=== PATIENT | female | born 1935 | race Caucasian/White ===

== ENCOUNTER 2018-08-12 17:30 | Inpatient (IN) | payer OTHER ==
[2018-08-12] MEDS ORDERED: KETOROLAC TROMETHAMINE 30 MG/1 ML VIAL IM ONE (17:51)
--- NOTE | 2018-08-12 17:55 | PDOC ---
History of Present Illness - General Chief Complaint: Pain Stated Complaint: POSSIBLE FRACTURE/FALL Time Seen by Provider: 08/12/18 17:44 History Source: Patient - History of Present Illness Occurred: reports: other Pain Location: reports: lower extremity Past History - Past Medical History Allergies/Adverse Reactions: Allergies Allergy/AdvReac Type Severity Reaction Status Date / Time levofloxacin Allergy Verified 08/12/18 17:38 piperacillin Allergy Verified 08/12/18 17:38 tazobactam Allergy Verified 08/12/18 17:38 tetracycline Allergy Verified 08/12/18 17:38 Home Medications: Ambulatory Orders Acetaminophen [Tylenol] 325 mg PO Q4H PRN 08/12/18 Atorvastatin Calcium [Lipitor] 20 mg PO DAILY 08/12/18 Cholecalciferol (Vitamin D3) [Vitamin D3 -] 1,000 unit PO DAILY 08/12/18 Cyanocobalamin [Vitamin B12 -] 1,000 mcg PO DAILY 08/12/18 Lactobacillus Acidophilus [Bacid -] 1 each PO BID 08/12/18 Memantine HCl [Namenda -] 20 mg PO DAILY 08/12/18 Nitrofurantoin Monohyd/M-Cryst [Macrobid -] 100 mg PO BID 08/12/18 Quetiapine Fumarate [Seroquel -] 25 mg PO HS 08/12/18 Sertraline HCl [Zoloft -] 50 mg PO DAILY 08/12/18 clonazePAM [Klonopin -] 0.5 mg PO DAILY 08/12/18 Anemia: Yes Cardiac Disorders: Yes (artherosclerotic heart disease.) COPD: No CHF: No Dementia: Yes (metabolic encephalopathy w/diff walking) Diabetes: Yes Hypercholesterolemia: Yes Psychiatric Problems: Yes (anxiety, major depressive disorder, psychotic ds w/ delusional episodes.) - Suicide/Smoking/Psychosocial Hx Smoking History: Unknown if ever smoked Have you smoked in the past 12 months: No Information on smoking cessation initiated: No Hx Alcohol Use: No Drug/Substance Use Hx: No Substance Use Type: None Review of Systems - Review of Systems Constitutional: No: Fever Respiratory: No: Shortness of Breath Cardiac (ROS): No: Chest Pain ABD/GI: No: Nausea, Vomiting, Abdominal cramping : No: Dysuria Musculoskeletal: Yes: Joint Pain *Physical Exam - Vital Signs Last Vital Signs Temp Pulse Resp BP Pulse Ox 98.7 F 72 18 147/74 95 08/12/18 17:38 08/12/18 17:38 08/12/18 17:38 08/12/18 17:38 08/12/18 17:38 - Physical Exam General Appearance: Yes: Appropriately Dressed. No: Apparent Distress HEENT: positive: Normal Voice Neck: positive: Supple. negative: Tender Respiratory/Chest: negative: Respiratory Distress Gastrointestinal/Abdominal: positive: Soft. negative: Tender Extremity: positive: Other (externally rotated LLE, c/o pain to L hip w/ ROM, NVI) Integumentary: positive: Dry, Warm Neurologic: positive: Alert, Normal Mood/Affect ED Treatment Course - LABORATORY CBC & Chemistry Diagram: 08/13/18 07:06 08/13/18 07:06 - RADIOLOGY Radiology Studies Ordered: Category Date Time Status CHEST X-RAY PORTABLE* [RAD] Stat Radiology 08/12/18 17:50 Ordered HIP & PELVIS-LEFT [RAD] Stat Radiology 08/12/18 17:50 Ordered HIP & PELVIS-RIGHT [RAD] Stat Radiology 08/12/18 17:50 Ordered Medical Decision Making - Medical Decision Making 08/12/18 17:52 82-year-old female, history of Alzheimer's dementia, CAD, UTI, ambulatory at baseline, sent to ED from [facility] after x-ray done at facility today showed a left hip fracture per EMS report. Patient was seen in ED 3 days ago for unwitnessed fall and had negative workup. CT head and bilateral hip x-rays were done and read as negative per radiology and patient was discharged back to [facility]. Apparently, patient continues to complain of left hip pain and had x-ray done today. Unclear if pt have been bearing weight since fall. No report of additional fall per [facility] report See exam L hip fx s/p fall in NH 3 days ago Hip films done in ED 08/10 read as neg per radiologist XR at [facility] today showed L hip fx per [facility] Pt c/o L hip pain and externally rotated on exam, NVI -xrays -labs -anticipate admission 08/12/18 19:05 Displaced femoral neck fracture on x-ray. Patient signed out to [facility] at this time pending ortho and admission *DC/Admit/Observation/Transfer Diagnosis at time of Disposition: Hip fracture Qualifiers: Encounter type: initial encounter Fracture type: closed Laterality: left Qualified Code(s): S72.002A - Fracture of unspecified part of neck of left femur , initial encounter for closed fracture - Discharge Dispostion Condition at time of disposition: Fair - Referrals - Patient Instructions - Post Discharge Activity
[2018-08-12] MEDS ORDERED: KETOROLAC TROMETHAMINE 30 MG/1 ML VIAL IVPUSH ONE (18:02)
[2018-08-12] MEDS ORDERED: KETOROLAC TROMETHAMINE 30 MG/1 ML VIAL ONE (18:03)
[2018-08-12 18:28] LABS: BASO % 0.1 % (0-2.0); EOS % 0.5 % (0-4.5); HEMATOCRIT 36.9 % (32.4-45.2); LYMPH % 3.5 % (8-40); MCHC 32.6 g/dl (32.0-36.0); MEAN PLT VOLUME 8.7 fl (7.5-11.1); MONO % 6.1 % (3.8-10.2); NEUT % 89.8 % (42.8-82.8); PLATELET COUNT 279 K/MM3 (134-434); RBC 4.15 M/mm3 (3.60-5.2); RDW 14.1 % (11.6-15.6); WHITE BLOOD COUNT 11.7 K/mm3 (4.0-10.0)
[2018-08-12 18:43] LABS: INR 1.09 (0.83-1.09); PROTHROMBIN TIME (PATIENT) 12.9 SEC (9.7-13.0)
[2018-08-12 18:46] LABS: ACTIVATED PTT 33.2 SECONDS (25.2-36.5)
[2018-08-12 18:54] LABS: ALBUMIN 3.4 g/dl (3.4-5.0); ALK PHOS 102 U/L (45-117); ANION GAP 7 MMOL/L (8-16); BILIRUBIN,TOTAL 0.7 mg/dL (0.2-1); BLOOD UREA NITROGEN 16 mg/dL (7-18); CALCIUM 9.1 mg/dL (8.5-10.1); CHLORIDE 109 mmol/L (98-107); CO2 28 mmol/L (21-32); CREATININE 0.5 mg/dL (0.55-1.3); GLUCOSE,RANDOM 130 mg/dL (74-106); POTASSIUM 4.1 mmol/L (3.5-5.1); SGOT/AST 16 U/L (15-37); SGPT/ALT 26 U/L (13-61); SODIUM 144 mmol/L (136-145); TOT PROT 6.9 g/dl (6.4-8.2)
[2018-08-12] MEDS ORDERED: ACETAMINOPHEN 1000 MG/100 ML VIAL (NON FORMULARY) IVPB ONE (19:44)
--- NOTE | 2018-08-12 19:50 | PDOC ---
*Physical Exam - Vital Signs Last Vital Signs Temp Pulse Resp BP Pulse Ox 98.7 F 72 18 147/74 95 08/12/18 17:38 08/12/18 17:38 08/12/18 17:38 08/12/18 17:38 08/12/18 17:38 ED Treatment Course - LABORATORY CBC & Chemistry Diagram: 08/12/18 18:10 08/12/18 18:10 - ADDITIONAL ORDERS Additional order review: Laboratory Results 08/12/18 08/12/18 18:10 18:10 WBC 11.7 H RBC 4.15 Hgb 12.0 Hct 36.9 MCV 89.0 MCH 29.0 MCHC 32.6 RDW 14.1 Plt Count 279 MPV 8.7 Absolute Neuts (auto) 10.5 H Neutrophils % 89.8 H Lymphocytes % 3.5 L D Monocytes % 6.1 Eosinophils % 0.5 Basophils % 0.1 Nucleated RBC % 0 Sodium 144 Potassium 4.1 Chloride 109 H Carbon Dioxide 28 Anion Gap 7 L BUN 16 Creatinine 0.5 L Creat Clearance w eGFR > 60 Random Glucose 130 H Calcium 9.1 Total Bilirubin 0.7 AST 16 ALT 26 Alkaline Phosphatase 102 Creatine Kinase 68 Troponin I < 0.02 Total Protein 6.9 Albumin 3.4 08/12/18 18:10 RBC 4.15 MCV 89.0 MCHC 32.6 RDW 14.1 MPV 8.7 Neutrophils % 89.8 H Lymphocytes % 3.5 L D Monocytes % 6.1 Eosinophils % 0.5 Basophils % 0.1 - Medications Given in the ED: ED Medications Discontinued Medications Generic Name Dose Route Start Last Admin Trade Name Maxx PRN Reason Stop Dose Admin Ketorolac Tromethamine 30 mg 08/12/18 17:51 08/12/18 18:23 Toradol Injection - IM 08/12/18 17:52 Not Given ONCE ONE Ketorolac Tromethamine 30 mg 08/12/18 18:02 08/12/18 18:23 Toradol Injection - IVPUSH 08/12/18 18:03 30 mg ONCE ONE Administration Medical Decision Making - Medical Decision Making 08/12/18 19:43 I spoke to Alyssia LANIER/ Dr. duenas. recommends surgical intervention once cleared by medical team 08/12/18 20:44 Patient signed out to Dr. Teran/ Dr. Hernandez. *DC/Admit/Observation/Transfer Diagnosis at time of Disposition: Hip fracture Qualifiers: Encounter type: initial encounter Fracture type: closed Laterality: left Qualified Code(s): S72.002A - Fracture of unspecified part of neck of left femur , initial encounter for closed fracture - Discharge Dispostion Condition at time of disposition: Fair - Referrals Referrals: Marlene Moran [Primary Care Provider] - - Patient Instructions - Post Discharge Activity
[2018-08-12] MEDS ORDERED: ACETAMINOPHEN INJECTION 100 ML IVPB ONE (19:58)
[2018-08-12] MEDS ORDERED: SODIUM CHLORIDE 1,000 ML IV SCH (20:00)
--- NOTE | 2018-08-12 20:45 | PN ---
Teaching Attending Note Name of Resident: Pete Rojas ATTENDING PHYSICIAN STATEMENT I saw and evaluated the patient. I reviewed the resident's note and discussed the case with the resident. I agree with the resident's findings and plan as documented. SUBJECTIVE: Patient is an 82 year old woman with history of Alzheimer's dementia, CAD, UTI, ambulatory at baseline, sent to ER from [facility] after x-ray done at facility today showed a left hip fracture per EMS report. Patient was seen in ER 3 days ago for unwitnessed fall and had negative workup. CT head and bilateral hip x-rays were done and read as negative per radiology and patient was discharged to [facility]. Apparently, patient continues to complain of left hip pain and had x-ray done today. Unclear if she had been bearing weight since fall. No report of additional fall per NH report OBJECTIVE: Alert Vital Signs Period Temp Pulse Resp BP Sys/Ramirez Pulse Ox Last 24 Hr 98.7 F 72 18 147/74 95 HEENT: No Jaundice, eye redness or discharge, PERRLA, EOMI. Normocephalic, atraumatic. External ears are normal and hearing is grossly intact. No nasal discharge. Neck: Supple, nontender. No palpable adenopathy or thyromegaly. No JVD Chest: Good effort. Clear to auscultation and percussion. Heart: Regular. No S3, rub or murmur Abdomen: Not distended, soft, nontender and no HSM. No rebound or guarding. Normoactive bowel sounds. Ext: Peripheral pulses intact. No leg edema. Tender left hip with limited ROM. Skin: Warm and dry. No petechiae, rash or ecchymosis. Neuro: Alert. Oriented x3. CN 2-12 grossly intact. Sensation grossly intact in all four extremities and DTR are symmetric. Current Medications Generic Name Dose Route Start Last Admin Trade Name Freq PRN Reason Stop Dose Admin Sodium Chloride 1,000 mls @ 50 mls/hr 08/12/18 20:00 Normal Saline - IV 08/13/18 19:50 ASDIR [facility] Home Medications Medication Instructions Recorded Acetaminophen [Tylenol] 325 mg PO Q4H PRN 08/12/18 Atorvastatin Calcium [Lipitor] 20 mg PO DAILY 08/12/18 Cholecalciferol (Vitamin D3) 1,000 unit PO DAILY 08/12/18 [Vitamin D3 -] Cyanocobalamin [Vitamin B12 -] 1,000 mcg PO DAILY 08/12/18 Lactobacillus Acidophilus [Bacid -] 1 each PO BID 08/12/18 Memantine HCl [Namenda -] 20 mg PO DAILY 08/12/18 Nitrofurantoin Monohyd/M-Cryst 100 mg PO BID 08/12/18 [Macrobid -] Quetiapine Fumarate [Seroquel -] 25 mg PO HS 08/12/18 Sertraline HCl [Zoloft -] 50 mg PO DAILY 08/12/18 clonazePAM [Klonopin -] 0.5 mg PO DAILY 08/12/18 Abnormal Lab Results 08/12/18 08/12/18 18:10 18:10 WBC 11.7 H Absolute Neuts (auto) 10.5 H Neutrophils % 89.8 H Lymphocytes % 3.5 L D Chloride 109 H Anion Gap 7 L Creatinine 0.5 L Random Glucose 130 H ASSESSMENT AND PLAN: 1. Left Femoral Neck Fracture - Ortho consulted. Continue pain control. UTI not responding to Macrobid - treat with Ertapenem 1 gm qd pending culture report. 2. DVT prophylaxis - Lovenox 40 mg SQ q 24 hours. 3. Advance directives - Full code
--- NOTE | 2018-08-12 20:54 | HP ---
CHIEF COMPLAINT: PCP: Dr Moran, [facility] HISTORY OF PRESENT ILLNESS: Daughter Virginia Rivas at bedside. Pt is an 82 y/o lady with a significant past medical history of Alzheimer's dementia, UTI, MDD, and CAD. Pt presented yesterday evening (08/12) via ambulance from [facility] for L hip pain and fracture. Daughter states she went to visit her mother yesterday am and tried to assist her to get our of bed. Pt's daughter noticed her mother had difficulty ambulating. Xray was performed at [facility], [place] which revealed a left hip fracture. Pt was recently seen in our ED this past Saturday (08/10) due to an unwitnessed fall at [facility]. Pt was said to have hit head head but was not known if she had lost any consciousness according to EMS. CT Head 08/10 was negative for any intracranial bleed and Hip Xray at that time was negative for any fracture. Pt's daughter states pt was receiving Macrobid 100 mg PO BID # 14 capsule at the residential for her UTI diagnosed 08/10. ER course was notable for: (1) L Hip XRAY--> Wet read reveals a fracture at head of femur (2) WBC 11.7 (3) Leuk Est 2 + Recent Travel: PAST MEDICAL HISTORY: Per HPI PAST SURGICAL HISTORY: Appendectomy Social History: Smoking: Denies Alcohol: Denies Drugs: Denies Family History: Allergies levofloxacin Allergy (Verified 08/12/18 17:38) piperacillin Allergy (Verified 08/12/18 17:38) tazobactam Allergy (Verified 08/12/18 17:38) tetracycline Allergy (Verified 08/12/18 17:38) HOME MEDICATIONS: Home Medications Medication Instructions Recorded Acetaminophen [Tylenol] 325 mg PO Q4H PRN 08/12/18 Atorvastatin Calcium [Lipitor] 20 mg PO DAILY 08/12/18 Cholecalciferol (Vitamin D3) 1,000 unit PO DAILY 08/12/18 [Vitamin D3 -] Cyanocobalamin [Vitamin B12 -] 1,000 mcg PO DAILY 08/12/18 Lactobacillus Acidophilus [Bacid -] 1 each PO BID 08/12/18 Memantine HCl [Namenda -] 20 mg PO DAILY 08/12/18 Nitrofurantoin Monohyd/M-Cryst 100 mg PO BID 08/12/18 [Macrobid -] Quetiapine Fumarate [Seroquel -] 25 mg PO HS 08/12/18 Sertraline HCl [Zoloft -] 50 mg PO DAILY 08/12/18 clonazePAM [Klonopin -] 0.5 mg PO DAILY 08/12/18 REVIEW OF SYSTEMS CONSTITUTIONAL: Absent: fever, chills, diaphoresis, generalized weakness, malaise, loss of appetite, weight change HEENT: Absent: rhinorrhea, nasal congestion, throat pain, throat swelling, difficulty swallowing, mouth swelling, ear pain, eye pain, visual changes CARDIOVASCULAR: Absent: chest pain, syncope, palpitations, irregular heart rate, lightheadedness , peripheral edema RESPIRATORY: Absent: cough, shortness of breath, dyspnea with exertion, orthopnea, wheezing, stridor, hemoptysis GASTROINTESTINAL: Absent: abdominal pain, abdominal distension, nausea, vomiting, diarrhea, constipation, melena, hematochezia GENITOURINARY: Absent: dysuria, frequency, urgency, hesitancy, hematuria, flank pain, genital pain MUSCULOSKELETAL: PRESENT L Hip pain SKIN: Absent: rash, itching, pallor HEMATOLOGIC/IMMUNOLOGIC: Absent: easy bleeding, easy bruising, lymphadenopathy, frequent infections ENDOCRINE: Absent: unexplained weight gain, unexplained weight loss, heat intolerance, cold intolerance NEUROLOGIC: Absent: headache, focal weakness or paresthesias, dizziness, unsteady gait, seizure, mental status changes, bladder or bowel incontinence PSYCHIATRIC: Absent: anxiety, depression, suicidal or homicidal ideation, hallucinations. PHYSICAL EXAMINATION Vital Signs - 24 hr 08/12/18 17:38 Temperature 98.7 F Pulse Rate 72 Respiratory 18 Rate Blood Pressure 147/74 O2 Sat by Pulse 95 Oximetry (%) GENERAL: Awake, oriented to person, not time or place. HEAD: NC/AT EYES: PERRLA, EOMI, no scleral icterus EARS, NOSE, THROAT: MMM NECK: Supple LUNGS: CTA B/L, no rales rhonchi or wheezing HEART: RRR, No MRG S1 S2 ABDOMEN: Scar R lower abdomen 2/2 appendectomy? ND NT No HSM. MUSCULOSKELETAL: impaired ROM R Hip joint. UPPER EXTREMITIES: No CCE LOWER EXTREMITIES: No CCE. NEUROLOGICAL: CN 2-12 intact PSYCHIATRIC: Alzheimer's dementia SKIN: Warm, no rashes or lesions appreciated Laboratory Results - last 24 hr 08/12/18 08/12/18 08/12/18 18:10 18:10 18:20 WBC 11.7 H RBC 4.15 Hgb 12.0 Hct 36.9 MCV 89.0 MCH 29.0 MCHC 32.6 RDW 14.1 Plt Count 279 MPV 8.7 Absolute Neuts (auto) 10.5 H Neutrophils % 89.8 H Lymphocytes % 3.5 L D Monocytes % 6.1 Eosinophils % 0.5 Basophils % 0.1 Nucleated RBC % 0 PT with INR 12.90 INR 1.09 PTT (Actin FS) 33.2 Sodium 144 Potassium 4.1 Chloride 109 H Carbon Dioxide 28 Anion Gap 7 L BUN 16 Creatinine 0.5 L Creat Clearance w eGFR > 60 Random Glucose 130 H Calcium 9.1 Total Bilirubin 0.7 AST 16 ALT 26 Alkaline Phosphatase 102 Creatine Kinase 68 Troponin I < 0.02 Total Protein 6.9 Albumin 3.4 ASSESSMENT/PLAN: Pt is an 82 y/o lady with a significant past medical history of Alzheimer's dementia, UTI, MDD, and CAD. Pt presented yesterday evening (08/12) via ambulance from [facility] for L hip pain and fracture. # L Hip Fracture L Hip XRAY--> Wet read reveals a fracture at head of femur -Ortho on board -Plan for possible surgery tomorrow -NPO -Pain control # UTI -WBC 11.7--> up from 8.8 on previous admission 08/10/18 -Leuk esterase 2+ -Multiple allergies to ABx -1 gm ceftriaxone given in ED -ID consult #Alzheimer's Dementia -Continue home meds FEN NS@50ml/hr Monitor electrolytes NPO DVT ppx HepSQ Dispo: Continue to monitor
[2018-08-12 20:58] LABS: URINE APPEARANCE CLOUDY; URINE BILIRUBIN NEGATIVE (<2.0 mg/dL); URINE COLOR AMBER; URINE GLUCOSE (UA) NEGATIVE (NEGATIVE); URINE KETONE 1+ (NEGATIVE); URINE LEUK ESTERASE 2+ (NEGATIVE); URINE NITRITE NEGATIVE (NEGATIVE); URINE PROTEIN 1+ (NEGATIVE); URINE UROBILINOGEN NEGATIVE mg/dL (0.2-1.0)
[2018-08-12 21:13] LABS: EPI CELLS RARE /HPF (FEW); URINE BACTERIA FEW /hpf (NONE SEEN); URINE HYALINE CAST 6 /lpf; URINE MUCUS MANY
[2018-08-12] MEDS ORDERED: CEFTRIAXONE 1,000 MG in DEXTROSE 5%-WATER - 50 ML IVPB ONE (21:17)
[2018-08-12] MEDS ORDERED: CEFTRIAXONE 1 GM/50 ML BAG ONE (21:26)
[2018-08-12] MEDS ORDERED: HEPARIN NA (PORCINE) 5,000 UNITS/ML 1ML VIAL ONE (22:37)
[2018-08-12] MEDS: HEPARIN NA (PORCINE) 5,000 UNITS/ML 1ML VIAL SQ SCH (22:41)
[2018-08-13 04:27] VITALS: BMI 22.1
[2018-08-13] MEDS: HEPARIN NA (PORCINE) 5,000 UNITS/ML 1ML VIAL SQ SCH ×3 (06:30→22:11)
[2018-08-13 07:50] LABS: BASO % 0.4 % (0-2.0); EOS % 3.9 % (0-4.5); HEMATOCRIT 31.9 % (32.4-45.2); HEMOGLOBIN 10.5 GM/dL (10.7-15.3); LYMPH % 8.9 % (8-40); MCH 29.1 pg (25.7-33.7); MEAN CELL VOLUME 88.2 fl (80-96); MEAN PLT VOLUME 8.3 fl (7.5-11.1); MONO % 8.7 % (3.8-10.2); NEUT % 78.1 % (42.8-82.8); PLATELET COUNT 214 K/MM3 (134-434); RBC 3.62 M/mm3 (3.60-5.2); RDW 14.2 % (11.6-15.6); WHITE BLOOD COUNT 7.3 K/mm3 (4.0-10.0)
[2018-08-13 08:02] LABS: INR 1.12 (0.83-1.09); PROTHROMBIN TIME (PATIENT) 13.2 SEC (9.7-13.0)
[2018-08-13 08:05] LABS: ACTIVATED PTT 34.6 SECONDS (25.2-36.5)
[2018-08-13 08:30] LABS: ANION GAP 7 MMOL/L (8-16); BLOOD UREA NITROGEN 20 mg/dL (7-18); CALCIUM 8.3 mg/dL (8.5-10.1); CHLORIDE 108 mmol/L (98-107); CO2 28 mmol/L (21-32); CREATININE 0.4 mg/dL (0.55-1.3); GLUCOSE,RANDOM 86 mg/dL (74-106); MAGNESIUM 2.3 mg/dL (1.8-2.4); POTASSIUM 3.5 mmol/L (3.5-5.1); SODIUM 143 mmol/L (136-145)
[2018-08-13] MEDS: DEXTROSE 5%-NORMAL SALINE 1,000 ML IV SCH ×2 (09:42→22:46)
--- NOTE | 2018-08-13 09:53 | EKG ---
Test Reason : Blood Pressure : / mmHG Vent. Rate : 088 BPM Atrial Rate : 088 BPM P-R Int : 142 ms QRS Dur : 084 ms QT Int : 400 ms P-R-T Axes : 030 -19 048 degrees QTc Int : 484 ms SINUS RHYTHM WITH PREMATURE ATRIAL COMPLEXES OTHERWISE NORMAL ECG WHEN COMPARED WITH ECG OF 12-AUG-2018 18:16, PREMATURE ATRIAL COMPLEXES ARE NOW PRESENT Confirmed by WAGNER JAIMES, IKE ([id number]) on 08/13/2018 9:53:28 AM Referred By: Confirmed By:IKE EDWARD MD
--- NOTE | 2018-08-13 09:53 | EKG ---
Test Reason : Blood Pressure : / mmHG Vent. Rate : 105 BPM Atrial Rate : 105 BPM P-R Int : 140 ms QRS Dur : 080 ms QT Int : 354 ms P-R-T Axes : 033 -25 069 degrees QTc Int : 467 ms SINUS TACHYCARDIA TDS motion artifacts WHEN COMPARED WITH ECG OF 10-AUG-2018 14:52, PREMATURE ATRIAL COMPLEXES ARE NO LONGER PRESENT Confirmed by IKE EDWARD MD ([id number]) on 08/13/2018 9:53:03 AM Referred By: Confirmed By:IKE EDWARD MD
--- NOTE | 2018-08-13 10:20 | CONSULT ---
Consult - text type - Consultation Consultation Note: orthopedics X-rays reviewed. will require ORIF. plan for this evening. Case discussed with Dr. Nobles. NPO
[2018-08-13] MEDS: ACETAMINOPHEN 650 MG/20.3 ML ORAL SOLUTION (CUPS) PO PRN ×2 (12:35→21:41)
[2018-08-13] MEDS ORDERED: MEMANTINE HCL 10 MG TABLET (FP) PO SCH (13:00)
[2018-08-13] MEDS ORDERED: clonazePAM 0.5 MG TABLET PO SCH (13:00)
--- NOTE | 2018-08-13 14:01 | PN ---
Physical Exam: SUBJECTIVE: Patient seen and examined this AM. She is pleasantly confused, but says that she is not currently having any pain at this time. She is unable to tell me the cause of her hip fracture. OBJECTIVE: Vital Signs Period Temp Pulse Resp BP Sys/Ramirez Pulse Ox Last 24 Hr 97.5 F-98.7 F 72-93 17-18 145-153/74-84 94-96 GENERAL: Oriented to person, no acute distress HEAD: Normocephalic, atraumatic. EYES: PERRL, no scleral icterus EARS, NOSE, THROAT: oropharynx clear without exudates. Moist mucous membranes. LUNGS: CTA b/l, no crackles or wheezes HEART: Regular rate and rhythm, normal S1 and S2 without murmur ABDOMEN: Soft, nontender to palpation, normoactive bowel sounds MUSCULOSKELETAL: No Left leg externally rotated and shorter than right leg, decreased ROM likely secondary to pain EXTREMITIES: 2+ pulses, warm, well-perfused. No peripheral edema. NEUROLOGICAL: Cranial nerves II-XII grossly intact. Confused speech, does not always respond appropriately Laboratory Results - last 24 hr 08/12/18 08/12/18 08/12/18 18:10 18:10 18:10 WBC 11.7 H RBC 4.15 Hgb 12.0 Hct 36.9 MCV 89.0 MCH 29.0 MCHC 32.6 RDW 14.1 Plt Count 279 MPV 8.7 Absolute Neuts (auto) 10.5 H Neutrophils % 89.8 H Lymphocytes % 3.5 L D Monocytes % 6.1 Eosinophils % 0.5 Basophils % 0.1 Nucleated RBC % 0 PT with INR INR PTT (Actin FS) Sodium 144 Potassium 4.1 Chloride 109 H Carbon Dioxide 28 Anion Gap 7 L BUN 16 Creatinine 0.5 L Creat Clearance w eGFR > 60 Random Glucose 130 H Calcium 9.1 Phosphorus Magnesium Total Bilirubin 0.7 AST 16 ALT 26 Alkaline Phosphatase 102 Creatine Kinase 68 Troponin I < 0.02 Total Protein 6.9 Albumin 3.4 Urine Color Urine Appearance Urine pH Ur Specific [place] Urine Protein Urine Glucose (UA) Urine Ketones Urine Blood Urine Nitrite Urine Bilirubin Urine Urobilinogen Ur Leukocyte Esterase Urine WBC (Auto) Urine RBC (Auto) Ur Epithelial Cells Urine Bacteria Hyaline Casts Urine Mucus Blood Type B NEGATIVE Antibody Screen Negative 08/12/18 08/12/18 08/12/18 18:20 20:46 21:15 WBC RBC Hgb Hct MCV MCH MCHC RDW Plt Count MPV Absolute Neuts (auto) Neutrophils % Lymphocytes % Monocytes % Eosinophils % Basophils % Nucleated RBC % PT with INR 12.90 INR 1.09 PTT (Actin FS) 33.2 Sodium Potassium Chloride Carbon Dioxide Anion Gap BUN Creatinine Creat Clearance w eGFR Random Glucose Calcium Phosphorus Magnesium Total Bilirubin AST ALT Alkaline Phosphatase Creatine Kinase Troponin I Total Protein Albumin Urine Color [place] Urine Appearance Cloudy Urine pH 5.0 Ur Specific [place] 1.020 Urine Protein 1+ H Urine Glucose (UA) Negative Urine Ketones 1+ H Urine Blood 1+ H Urine Nitrite Negative Urine Bilirubin Negative Urine Urobilinogen Negative Ur Leukocyte Esterase 2+ H Urine WBC (Auto) 285 Urine RBC (Auto) 68 Ur Epithelial Cells Rare Urine Bacteria Few Hyaline Casts 6 Urine Mucus Many Blood Type B NEGATIVE Antibody Screen 08/13/18 08/13/18 08/13/18 07:06 07:06 07:06 WBC 7.3 RBC 3.62 Hgb 10.5 L Hct 31.9 L MCV 88.2 MCH 29.1 MCHC 33.0 RDW 14.2 Plt Count 214 D MPV 8.3 Absolute Neuts (auto) 5.7 Neutrophils % 78.1 Lymphocytes % 8.9 D Monocytes % 8.7 Eosinophils % 3.9 D Basophils % 0.4 D Nucleated RBC % 0 PT with INR 13.20 H INR 1.12 H PTT (Actin FS) 34.6 Sodium 143 Potassium 3.5 Chloride 108 H Carbon Dioxide 28 Anion Gap 7 L BUN 20 H Creatinine 0.4 L Creat Clearance w eGFR > 60 Random Glucose 86 Calcium 8.3 L Phosphorus 3.0 Magnesium 2.3 Total Bilirubin AST ALT Alkaline Phosphatase Creatine Kinase Troponin I Total Protein Albumin Urine Color Urine Appearance Urine pH Ur Specific [place] Urine Protein Urine Glucose (UA) Urine Ketones Urine Blood Urine Nitrite Urine Bilirubin Urine Urobilinogen Ur Leukocyte Esterase Urine WBC (Auto) Urine RBC (Auto) Ur Epithelial Cells Urine Bacteria Hyaline Casts Urine Mucus Blood Type Antibody Screen 08/13/18 07:06 WBC RBC Hgb Hct MCV MCH MCHC RDW Plt Count MPV Absolute Neuts (auto) Neutrophils % Lymphocytes % Monocytes % Eosinophils % Basophils % Nucleated RBC % PT with INR INR PTT (Actin FS) Sodium Potassium Chloride Carbon Dioxide Anion Gap BUN Creatinine Creat Clearance w eGFR Random Glucose Calcium Phosphorus Magnesium Total Bilirubin AST ALT Alkaline Phosphatase Creatine Kinase Troponin I Total Protein Albumin Urine Color Urine Appearance Urine pH Ur Specific [place] Urine Protein Urine Glucose (UA) Urine Ketones Urine Blood Urine Nitrite Urine Bilirubin Urine Urobilinogen Ur Leukocyte Esterase Urine WBC (Auto) Urine RBC (Auto) Ur Epithelial Cells Urine Bacteria Hyaline Casts Urine Mucus Blood Type B NEGATIVE Antibody Screen Negative Active Medications Generic Name Dose Route Start Last Admin Trade Name Maxx PRN Reason Stop Dose Admin Acetaminophen 650 mg 08/13/18 12:15 08/13/18 12:35 Tylenol Oral Solution - PO 650 mg Q6H PRN Administration PAIN LEVEL 6-10 Atorvastatin Calcium 20 mg 08/13/18 22:00 Lipitor - PO HS [facility] Cholecalciferol 1,000 unit 08/14/18 10:00 Vitamin D3 - PO DAILY [facility] Clonazepam 0.5 mg 08/13/18 13:00 Klonopin - PO DAILY [facility] Cyanocobalamin 1,000 mcg 08/13/18 13:00 Vitamin B12 - PO DAILY [facility] Heparin Sodium (Porcine) 5,000 unit 08/12/18 22:30 08/13/18 06:30 Heparin - SQ 5,000 unit TID [place] Administration Dextrose/Sodium Chloride 1,000 mls @ 100 mls/hr 08/13/18 09:15 08/13/18 09:42 D5-Ns - IV 100 mls/hr ASDIR [place] Administration Lactobacillus Acidophilus 1 tab 08/13/18 13:00 Bacid - PO BID [place] Memantine 10 mg 08/13/18 13:15 Namenda - PO BID [facility] Quetiapine Fumarate 25 mg 08/13/18 22:00 Seroquel - PO HS [facility] Sertraline HCl 50 mg 08/13/18 13:00 Zoloft - PO DAILY [facility] ASSESSMENT/PLAN: 82 yo female with PMH Alzheimer's Dimentia presented from the longterm with new left hip fx after recent negative workup following a fall Left Hip Fracture -Pt evaluated 2 days prior to admission with negative workup for hip fracture, return with clear fracture on Hip/Pelvis Radiograph -[facility]entiary states pt did not have repeat fall -Ortho consulted -Pt for OR tomorrow -Resume Puree diet for now, NPO at midnight -Hold heparin as per surgery -Pain controlled with Tylenol, can get Morphine 1mg if she has worsening pain Alzheimer's Dementia -Continue home medications -Namenda 10 mg PO BID -Zoloft 50 mg PO Daily -Seroquel 25 mg PO HS presumably for sleep or agitation at night HLD -Lipitor 20 mg PO Daily DVT Prophylaxis -Heparin 5000 units SQ TID FEN -Fluids: -Electrolytes: No electrolyte abnormalities, BMP in AM -Nutrition: Dysphagia puree Diet Disposition Med/Surg Visit type - Emergency Visit Emergency Visit: Yes ED Registration Date: 08/12/18 Care time: The patient presented to the Emergency Department on the above date and was hospitalized for further evaluation of their emergent condition. - New Patient This patient is new to me today: Yes Date on this admission: 08/13/18 - Critical Care Critical Care patient: No
[2018-08-13] MEDS ORDERED: LORazepam 0.5 MG TABLET PO ONE (14:11)
[2018-08-13] MEDS: SERTRALINE HCL 50 MG TABLET (FP) PO SCH (14:19)
[2018-08-13] MEDS: CYANOCOBALAMIN 1,000 MCG TABLET (FP) PO SCH (14:19)
[2018-08-13] MEDS: LACTOBACILLUS ACIDOPHILUS 1 TABLET PO SCH ×2 (14:19→21:40)
[2018-08-13] MEDS: MEMANTINE HCL 10 MG TABLET (FP) PO SCH ×2 (14:19→21:40)
[2018-08-13] MEDS ORDERED: HALOPERIDOL LACTATE 5 MG/ML IM ONE (14:24)
--- NOTE | 2018-08-13 14:47 | PN ---
Teaching Attending Note Name of Resident: Amrit Mckenzie ATTENDING PHYSICIAN STATEMENT I saw and evaluated the patient. I reviewed the resident's note and discussed the case with the resident. I agree with the resident's findings and plan as documented with exceptions below. SUBJECTIVE: Patient seen and examined. oriented to self, denies any pain, daughter at bedside. OBJECTIVE: Vital Signs Period Temp Pulse Resp BP Sys/Ramirez Pulse Ox Last 24 Hr 97.5 F-98.7 F 72-93 17-18 122-153/71-84 94-96 Intake & Output 08/10/18 08/11/18 08/12/18 08/13/18 23:59 23:59 23:59 23:59 Intake Total 0 Output Total 130 600 Balance -130 -600 Weight 140 lb 125 lb 3 oz General: lying in bed in no acute distress Extremities; LLE shortened externally rotated, positive DP pulses Abdomen:soft, NT Chest: poor effort, no rales or wheezing Active Medications Acetaminophen (Tylenol Oral Solution -) 650 mg PO Q6H PRN PRN Reason: PAIN LEVEL 6-10 Last Admin: 08/13/18 12:35 Dose: 650 mg Atorvastatin Calcium (Lipitor -) 20 mg PO HS [facility] Cholecalciferol (Vitamin D3 -) 1,000 unit PO DAILY [facility] Cyanocobalamin (Vitamin B12 -) 1,000 mcg PO DAILY [facility] Last Admin: 08/13/18 14:19 Dose: 1,000 mcg Heparin Sodium (Porcine) (Heparin -) 5,000 unit SQ TID [facility] Last Admin: 08/13/18 06:30 Dose: 5,000 unit Dextrose/Sodium Chloride (D5-Ns -) 1,000 mls @ 100 mls/hr IV ASDIR [facility] Last Admin: 08/13/18 09:42 Dose: 100 mls/hr Lactobacillus Acidophilus (Bacid -) 1 tab PO BID [facility] Last Admin: 08/13/18 14:19 Dose: 1 tab Memantine (Namenda -) 10 mg PO BID [facility] Last Admin: 08/13/18 14:19 Dose: 10 mg Quetiapine Fumarate (Seroquel -) 25 mg PO HS [facility] Sertraline HCl (Zoloft -) 50 mg PO DAILY [facility] Last Admin: 08/13/18 14:19 Dose: 50 mg Laboratory Results - last 24 hr 08/12/18 08/12/18 08/12/18 18:10 18:10 18:10 WBC 11.7 H RBC 4.15 Hgb 12.0 Hct 36.9 MCV 89.0 MCH 29.0 MCHC 32.6 RDW 14.1 Plt Count 279 MPV 8.7 Absolute Neuts (auto) 10.5 H Neutrophils % 89.8 H Lymphocytes % 3.5 L D Monocytes % 6.1 Eosinophils % 0.5 Basophils % 0.1 Nucleated RBC % 0 PT with INR INR PTT (Actin FS) Sodium 144 Potassium 4.1 Chloride 109 H Carbon Dioxide 28 Anion Gap 7 L BUN 16 Creatinine 0.5 L Creat Clearance w eGFR > 60 Random Glucose 130 H Calcium 9.1 Phosphorus Magnesium Total Bilirubin 0.7 AST 16 ALT 26 Alkaline Phosphatase 102 Creatine Kinase 68 Troponin I < 0.02 Total Protein 6.9 Albumin 3.4 Urine Color Urine Appearance Urine pH Ur Specific Colony Urine Protein Urine Glucose (UA) Urine Ketones Urine Blood Urine Nitrite Urine Bilirubin Urine Urobilinogen Ur Leukocyte Esterase Urine WBC (Auto) Urine RBC (Auto) Ur Epithelial Cells Urine Bacteria Hyaline Casts Urine Mucus Blood Type B NEGATIVE Antibody Screen Negative 08/12/18 08/12/18 08/12/18 18:20 20:46 21:15 WBC RBC Hgb Hct MCV MCH MCHC RDW Plt Count MPV Absolute Neuts (auto) Neutrophils % Lymphocytes % Monocytes % Eosinophils % Basophils % Nucleated RBC % PT with INR 12.90 INR 1.09 PTT (Actin FS) 33.2 Sodium Potassium Chloride Carbon Dioxide Anion Gap BUN Creatinine Creat Clearance w eGFR Random Glucose Calcium Phosphorus Magnesium Total Bilirubin AST ALT Alkaline Phosphatase Creatine Kinase Troponin I Total Protein Albumin Urine Color [place] Urine Appearance Cloudy Urine pH 5.0 Ur Specific Colony 1.020 Urine Protein 1+ H Urine Glucose (UA) Negative Urine Ketones 1+ H Urine Blood 1+ H Urine Nitrite Negative Urine Bilirubin Negative Urine Urobilinogen Negative Ur Leukocyte Esterase 2+ H Urine WBC (Auto) 285 Urine RBC (Auto) 68 Ur Epithelial Cells Rare Urine Bacteria Few Hyaline Casts 6 Urine Mucus Many Blood Type B NEGATIVE Antibody Screen 08/13/18 08/13/18 08/13/18 07:06 07:06 07:06 WBC 7.3 RBC 3.62 Hgb 10.5 L Hct 31.9 L MCV 88.2 MCH 29.1 MCHC 33.0 RDW 14.2 Plt Count 214 D MPV 8.3 Absolute Neuts (auto) 5.7 Neutrophils % 78.1 Lymphocytes % 8.9 D Monocytes % 8.7 Eosinophils % 3.9 D Basophils % 0.4 D Nucleated RBC % 0 PT with INR 13.20 H INR 1.12 H PTT (Actin FS) 34.6 Sodium 143 Potassium 3.5 Chloride 108 H Carbon Dioxide 28 Anion Gap 7 L BUN 20 H Creatinine 0.4 L Creat Clearance w eGFR > 60 Random Glucose 86 Calcium 8.3 L Phosphorus 3.0 Magnesium 2.3 Total Bilirubin AST ALT Alkaline Phosphatase Creatine Kinase Troponin I Total Protein Albumin Urine Color Urine Appearance Urine pH Ur Specific Colony Urine Protein Urine Glucose (UA) Urine Ketones Urine Blood Urine Nitrite Urine Bilirubin Urine Urobilinogen Ur Leukocyte Esterase Urine WBC (Auto) Urine RBC (Auto) Ur Epithelial Cells Urine Bacteria Hyaline Casts Urine Mucus Blood Type Antibody Screen 08/13/18 07:06 WBC RBC Hgb Hct MCV MCH MCHC RDW Plt Count MPV Absolute Neuts (auto) Neutrophils % Lymphocytes % Monocytes % Eosinophils % Basophils % Nucleated RBC % PT with INR INR PTT (Actin FS) Sodium Potassium Chloride Carbon Dioxide Anion Gap BUN Creatinine Creat Clearance w eGFR Random Glucose Calcium Phosphorus Magnesium Total Bilirubin AST ALT Alkaline Phosphatase Creatine Kinase Troponin I Total Protein Albumin Urine Color Urine Appearance Urine pH Ur Specific Colony Urine Protein Urine Glucose (UA) Urine Ketones Urine Blood Urine Nitrite Urine Bilirubin Urine Urobilinogen Ur Leukocyte Esterase Urine WBC (Auto) Urine RBC (Auto) Ur Epithelial Cells Urine Bacteria Hyaline Casts Urine Mucus Blood Type B NEGATIVE Antibody Screen Negative ASSESSMENT AND PLAN: 82 yof with Alzheimer's dementia admitted with Left hip fracture, UTI, dehydration -Left femoral neck fracture -Lower uncomplicated UTI, failed outpatient treatment -Dehydration -Alzheimer's dementia Plan: Ortho input noted, plan for surgical intervention today. Tolerated Ceftriaxone well in ed, ?Allergy to PCN. Confirm with daughter. Continue ceftriaxone accordingly. follow up with ID. Hold off on ertapenem for now. Change IVF to D5NS. COntinue home namenda/seroquel/zoloft. Pain control tylenol prn. DVTPPX hold pending surgical plans today, start per ortho. Frequent orient to environment, early ambulatin post op, pain control to reduce alexus-operative delirium. Daughter at bedside, denies any prior CAD, HI, CHF. Currently clinically with no concerns of chest pain, ACS, or CHF. EKG reviewed. Moderate risk from cardiovascular standpoint for urgent level of surgery. Risks of holding surgery higher at this point. Plan discussed with daughter at bedside in detail, all questions answered.
--- NOTE | 2018-08-13 15:00 | CON.ID ---
Consult Consult Specialty:: infectious disease Referred by:: hospitalist service Reason for Consultation:: UTI. multiple allergies - History of Present Illness Chief Complaint: hip pain History of Present Illness: Seen in ED 3 days ago s/p fall, workup negative for fracture -seen 08/10- noted to have pyuria and started on macrobid-no urine culture sent now returns yesterday with Left hip pain and found to have a fracture of left femur UA still with pyuria, lima placed, started on ceftriaxone daughter at bedside- aware of multiple allergies- doesnot know the nature of the allergies was living in the community then admitted several months ago to [facility] with UTI discharged to [place] for short term rehab end of May- has done poorly with worsening mental status and multiple falls family doesnot think she can live on her own no fevers no known history of resistant organsims received ceftriaxone in ED without issue - History Source History Provided By: Family Member, Medical Record Limitations to Obtaining History: Dementia - Past Medical History TIRE MANAGER: Yes: Alzheimer's Cardio/Vascular: Yes: CAD Psych: Yes: Depression Additional Medical History: b12 def, vit d def - Alcohol/Substance Use Hx Alcohol Use: No - Smoking History Smoking history: Unknown if ever smoked Have you smoked in the past 12 months: No - Social History Usual Living Arrangement: Intermediate ADL: Support Services History of Recent Travel: No Home Medications - Allergies Allergies/Adverse Reactions: Allergies Allergy/AdvReac Type Severity Reaction Status Date / Time levofloxacin Allergy Verified 08/12/18 17:38 piperacillin Allergy Verified 08/12/18 17:38 tazobactam Allergy Verified 08/12/18 17:38 tetracycline Allergy Verified 08/12/18 17:38 - Home Medications Home Medications: Ambulatory Orders Acetaminophen [Tylenol] 325 mg PO Q4H PRN 08/12/18 Atorvastatin Calcium [Lipitor] 20 mg PO DAILY 08/12/18 Cholecalciferol (Vitamin D3) [Vitamin D3 -] 1,000 unit PO DAILY 08/12/18 Cyanocobalamin [Vitamin B12 -] 1,000 mcg PO DAILY 08/12/18 Lactobacillus Acidophilus [Bacid -] 1 each PO BID 08/12/18 Memantine HCl [Namenda -] 20 mg PO DAILY 08/12/18 Nitrofurantoin Monohyd/M-Cryst [Macrobid -] 100 mg PO BID 08/12/18 Quetiapine Fumarate [Seroquel -] 25 mg PO HS 08/12/18 Sertraline HCl [Zoloft -] 50 mg PO DAILY 08/12/18 clonazePAM [Klonopin -] 0.5 mg PO DAILY 08/12/18 Family Disease History - Family Disease History Family History: Unable to Obtain Review of Systems - Review of Systems Constitutional: reports: No Symptoms. denies: Chills, Fever Cardiovascular: denies: Chest Pain Respiratory: denies: Cough Gastrointestinal: denies: Abdominal Pain Physical Exam Vital Signs: Vital Signs Temperature 98.2 F 08/13/18 14:00 Pulse Rate 90 08/13/18 14:00 Respiratory Rate 17 08/13/18 14:00 Blood Pressure 122/71 08/13/18 14:00 O2 Sat by Pulse Oximetry (%) 94 L 08/13/18 03:43 Constitutional: Yes: No Distress, Calm Eyes: Yes: Conjunctiva Clear HENT: Yes: Atraumatic, Normocephalic Neck: Yes: Supple Cardiovascular: Yes: Regular Rate and Rhythm Respiratory: Yes: Regular, CTA Bilaterally Gastrointestinal: Yes: Normal Bowel Sounds, Soft Renal/: Yes: Lima Present. No: CVA Tenderness - Left, CVA Tenderness - Right Edema: No Labs: CBC, BMP 08/13/18 07:06 08/13/18 07:06 Laboratory Tests 08/12/18 20:46 Urine Protein 1+ H Urine Ketones 1+ H Urine Blood 1+ H Ur Leukocyte Esterase 2+ H Urine WBC (Auto) 285 Urine RBC (Auto) 68 Ur Epithelial Cells Rare Urine Bacteria Few Hyaline Casts 6 Imaging - Results Chest X-ray: Report Reviewed, Image Reviewed X-ray: Report Reviewed (left femoral neck fracture) Problem List - Problems (1) Urinary tract infection Code(s): N39.0 - URINARY TRACT INFECTION, SITE NOT SPECIFIED Qualifiers: Urinary tract infection type: site unspecified Hematuria presence: without hematuria Qualified Code(s): N39.0 - Urinary tract infection, site not specified (2) Hip fracture Code(s): S72.009A - FRACTURE OF UNSP PART OF NECK OF UNSP FEMUR, INIT Qualifiers: Encounter type: initial encounter Fracture type: closed Laterality: left Qualified Code(s): S72.002A - Fracture of unspecified part of neck of left femur, initial encounter for closed fracture (3) Allergy to multiple antibiotics Code(s): Z88.1 - ALLERGY STATUS TO OTHER ANTIBIOTIC AGENTS STATUS Assessment/Plan d/w daughter she wishes to speak to Ortho continue ceftriaxone f/u urine culture f/u ortho for fracture
[2018-08-13] MEDS ORDERED: cefTRIAXone SODIUM 1 GM VIAL ONE (15:51)
[2018-08-13] MEDS ORDERED: DEXTROSE 5%-WATER - 50 ML IVPB ONE (15:51)
[2018-08-13] MEDS: CEFTRIAXONE 1 GM in DEXTROSE 5%-WATER - 50 ML IVPB SCH (15:56)
--- NOTE | 2018-08-13 18:24 | CONSULT ---
Consult Consult Specialty:: orthopedics Reason for Consultation:: Left hip - History of Present Illness History of Present Illness: 82y/o female c/o left hip pain s/p fall at [facility] 3 days ago. She came to the ER the day of the fall and had x-rays which were negative for a fracture. She returned yesterday with pain in her hip and was found to have a fracture. There is no reported additional fall in the prison. She is unable to walk. - History Source History Provided By: Patient, Medical Record - Past Medical History DATA ARCHITECT MANAGER: Yes: Alzheimer's Cardio/Vascular: Yes: CAD Psych: Yes: Depression Additional Medical History: b12 def, vit d def - Alcohol/Substance Use Hx Alcohol Use: No - Smoking History Smoking history: Unknown if ever smoked Have you smoked in the past 12 months: No - Social History Usual Living Arrangement: Prison ADL: Support Services History of Recent Travel: No Home Medications - Allergies Allergies/Adverse Reactions: Allergies Allergy/AdvReac Type Severity Reaction Status Date / Time levofloxacin Allergy Verified 08/12/18 17:38 piperacillin Allergy Verified 08/12/18 17:38 tazobactam Allergy Verified 08/12/18 17:38 tetracycline Allergy Verified 08/12/18 17:38 - Home Medications Home Medications: Ambulatory Orders Acetaminophen [Tylenol] 325 mg PO Q4H PRN 08/12/18 Atorvastatin Calcium [Lipitor] 20 mg PO DAILY 08/12/18 Cholecalciferol (Vitamin D3) [Vitamin D3 -] 1,000 unit PO DAILY 08/12/18 Cyanocobalamin [Vitamin B12 -] 1,000 mcg PO DAILY 08/12/18 Lactobacillus Acidophilus [Bacid -] 1 each PO BID 08/12/18 Memantine HCl [Namenda -] 20 mg PO DAILY 08/12/18 Nitrofurantoin Monohyd/M-Cryst [Macrobid -] 100 mg PO BID 08/12/18 Quetiapine Fumarate [Seroquel -] 25 mg PO HS 08/12/18 Sertraline HCl [Zoloft -] 50 mg PO DAILY 08/12/18 clonazePAM [Klonopin -] 0.5 mg PO DAILY 08/12/18 Review of Systems - Review of Systems Constitutional: reports: No Symptoms Eyes: reports: No Symptoms HENT: reports: No Symptoms Neck: reports: No Symptoms Cardiovascular: reports: No Symptoms Respiratory: reports: No Symptoms Gastrointestinal: reports: No Symptoms Genitourinary: reports: No Symptoms Breasts: reports: No Symptoms Reported Musculoskeletal: reports: No Symptoms Integumentary: reports: No Symptoms Neurological: reports: No Symptoms Endocrine: reports: No Symptoms Hematology/Lymphatic: reports: No Symptoms Psychiatric: reports: No Symptoms Physical Exam Vital Signs: Vital Signs Temperature 98.2 F 08/13/18 14:00 Pulse Rate 90 08/13/18 14:00 Respiratory Rate 17 08/13/18 14:00 Blood Pressure 122/71 08/13/18 14:00 O2 Sat by Pulse Oximetry (%) 94 L 08/13/18 03:43 Constitutional: Yes: Well Nourished, No Distress, Calm Musculoskeletal: Yes: Other (No open wounds. TTP along the left hip. Pain with motion of the hip. Compartments soft. No calf tenderness. Negative shara's sign. NVID.) Labs: CBC, BMP 08/13/18 07:06 08/13/18 07:06 Imaging - Results X-ray: Image Reviewed (left hip: Displaced femoral neck fracture) Assessment/Plan #1 Left displaced femoral neck fracture -recommend ORIF. Spoke to pt and daughter. They would like to proceed. Discussed case with Dr. Nobles. Plan for ORIF tomorrow at 1PM. RBA discussed with daughter -NPO after midnight
[2018-08-13] MEDS ORDERED: ATORVASTATIN CA 20 MG TABLET (FP) PO SCH (22:00)
[2018-08-13] MEDS ORDERED: QUEtiapine FUMARATE 25 MG TABLET (FP) PO SCH (22:00)
[2018-08-14] MEDS: HEPARIN NA (PORCINE) 5,000 UNITS/ML 1ML VIAL SQ SCH (05:42)
--- NOTE | 2018-08-14 08:18 | PN ---
Teaching Attending Note Name of Resident: Amrit Mckenzie ATTENDING PHYSICIAN STATEMENT I saw and evaluated the patient. I reviewed the resident's note and discussed the case with the resident. I agree with the resident's findings and plan as documented with exceptions below. SUBJECTIVE: Patient seen and examined. no complaints, denies any pain currently OBJECTIVE: Vital Signs Period Temp Pulse Resp BP Sys/Ramirez Pulse Ox Last 24 Hr 97.7 F-98.2 F 77-93 17-20 122-152/65-84 94 Intake & Output 08/11/18 08/12/18 08/13/18 08/14/18 23:59 23:59 23:59 23:59 Intake Total 800 1100 Output Total 130 1100 Balance -130 -300 1100 Weight 140 lb 125 lb 3 oz General: lying in bed in no acute distress Abdomen: soft, NT, ND Chest: decreased effort, no rales or wheezing Extremities: no edema, pulses present, LLE, shortened and externally rotated Active Medications Acetaminophen (Tylenol Oral Solution -) 650 mg PO Q6H PRN PRN Reason: PAIN LEVEL 6-10 Last Admin: 08/13/18 21:41 Dose: 650 mg Atorvastatin Calcium (Lipitor -) 20 mg PO HS [facility] Last Admin: 08/13/18 21:40 Dose: 20 mg Cholecalciferol (Vitamin D3 -) 1,000 unit PO DAILY [facility] Cyanocobalamin (Vitamin B12 -) 1,000 mcg PO DAILY [facility] Last Admin: 08/13/18 14:19 Dose: 1,000 mcg Heparin Sodium (Porcine) (Heparin -) 5,000 unit SQ TID [facility] Last Admin: 08/14/18 05:42 Dose: 5,000 unit Dextrose/Sodium Chloride (D5-Ns -) 1,000 mls @ 100 mls/hr IV ASDIR [facility] Last Admin: 08/13/18 22:46 Dose: 100 mls/hr Ceftriaxone Sodium 1 gm/ (Dextrose) 50 mls @ 100 mls/hr IVPB DAILY [facility]; Protocol Last Admin: 08/13/18 15:56 Dose: 100 mls/hr Lactobacillus Acidophilus (Bacid -) 1 tab PO BID [facility] Last Admin: 08/13/18 21:40 Dose: 1 tab Memantine (Namenda -) 10 mg PO BID [facility] Last Admin: 08/13/18 21:40 Dose: 10 mg Quetiapine Fumarate (Seroquel -) 25 mg PO HS [facility] Last Admin: 08/13/18 21:40 Dose: 25 mg Sertraline HCl (Zoloft -) 50 mg PO DAILY [facility] Last Admin: 08/13/18 14:19 Dose: 50 mg Laboratory Results - last 24 hr 08/14/18 08/14/18 08:00 08:00 WBC 7.5 RBC 3.73 Hgb 11.0 Hct 33.2 MCV 89.1 MCH 29.5 MCHC 33.2 RDW 14.0 Plt Count 222 MPV 8.6 Sodium 145 Potassium 3.7 Chloride 113 H Carbon Dioxide 26 Anion Gap 6 L BUN 12 Creatinine 0.4 L Creat Clearance w eGFR > 60 Random Glucose 85 Calcium 8.2 L Phosphorus 3.2 Magnesium 2.2 ASSESSMENT AND PLAN: 82 yof with Alzheimer's dementia admitted with Left hip fracture, UTI, dehydration -Left femoral neck fracture -Lower uncomplicated UTI, failed outpatient treatment -Dehydration -Alzheimer's dementia Plan: Ortho input noted, plan for surgical intervention today. Tolerated Ceftriaxone well in ed,discussed with daughter, no concerning allergies. ID input appreciated. Ceftriaxone day 3, follow up urine cultures. D5NS while NPO. Continue home namenda/seroquel/zoloft. Pain control tylenol prn. DVTPPX hold pending surgical plans today, start per ortho. Frequent orientation to environment, early ambulation post op, pain control to reduce alexus-operative delirium. DVTPPx per ortho Plan discussed with nursing, all questions answered.
[2018-08-14 08:38] LABS: HEMATOCRIT 33.2 % (32.4-45.2); MCH 29.5 pg (25.7-33.7); MCHC 33.2 g/dl (32.0-36.0); MEAN CELL VOLUME 89.1 fl (80-96); MEAN PLT VOLUME 8.6 fl (7.5-11.1); PLATELET COUNT 222 K/MM3 (134-434); RBC 3.73 M/mm3 (3.60-5.2); WHITE BLOOD COUNT 7.5 K/mm3 (4.0-10.0)
[2018-08-14 08:54] LABS: ANION GAP 6 MMOL/L (8-16); BLOOD UREA NITROGEN 12 mg/dL (7-18); CALCIUM 8.2 mg/dL (8.5-10.1); CHLORIDE 113 mmol/L (98-107); CO2 26 mmol/L (21-32); CREATININE 0.4 mg/dL (0.55-1.3); GLUCOSE,RANDOM 85 mg/dL (74-106); MAGNESIUM 2.2 mg/dL (1.8-2.4); PHOSPHOROUS 3.2 mg/dL (2.5-4.9); POTASSIUM 3.7 mmol/L (3.5-5.1); SODIUM 145 mmol/L (136-145)
[2018-08-14] MEDS ORDERED: cefTRIAXone SODIUM 1 GM VIAL ONE (09:15)
[2018-08-14] MEDS ORDERED: DEXTROSE 5%-WATER - 50 ML IVPB ONE (09:16)
[2018-08-14] MEDS: CEFTRIAXONE 1 GM in DEXTROSE 5%-WATER - 50 ML IVPB SCH (09:21)
[2018-08-14] MEDS: CYANOCOBALAMIN 1,000 MCG TABLET (FP) PO SCH (09:22)
[2018-08-14] MEDS: SERTRALINE HCL 50 MG TABLET (FP) PO SCH (09:22)
[2018-08-14] MEDS: LACTOBACILLUS ACIDOPHILUS 1 TABLET PO SCH ×2 (09:22→21:53)
[2018-08-14] MEDS: MEMANTINE HCL 10 MG TABLET (FP) PO SCH ×2 (09:22→21:53)
[2018-08-14] MEDS: DEXTROSE 5%-NORMAL SALINE 1,000 ML IV SCH (09:22)
--- NOTE | 2018-08-14 09:50 | PN ---
Physical Exam: SUBJECTIVE: Patient seen and examined this AM. She is pleasantly confused, but states that she is not in any pain. She was sleeping comfortably on arrival. OBJECTIVE: Vital Signs Period Temp Pulse Resp BP Sys/Ramirez Pulse Ox Last 24 Hr 97.7 F-98.2 F 77-93 17-20 122-152/65-84 94-95 GENERAL: Oriented to person but not time or place, no acute distress HEAD: Normocephalic, atraumatic. EYES: PERRL, no scleral icterus EARS, NOSE, THROAT: oropharynx clear without exudates. Moist mucous membranes. LUNGS: CTA b/l, no crackles or wheezes HEART: Regular rate and rhythm, normal S1 and S2 without murmur ABDOMEN: Soft, nontender to palpation, normoactive bowel sounds MUSCULOSKELETAL: No Left leg externally rotated and shorter than right leg, decreased ROM likely secondary to pain EXTREMITIES: 2+ pulses, warm, well-perfused. No peripheral edema. NEUROLOGICAL: Cranial nerves II-XII grossly intact. Confused speech, does not always respond appropriately Laboratory Results - last 24 hr 08/14/18 08/14/18 08:00 08:00 WBC 7.5 RBC 3.73 Hgb 11.0 Hct 33.2 MCV 89.1 MCH 29.5 MCHC 33.2 RDW 14.0 Plt Count 222 MPV 8.6 Sodium 145 Potassium 3.7 Chloride 113 H Carbon Dioxide 26 Anion Gap 6 L BUN 12 Creatinine 0.4 L Creat Clearance w eGFR > 60 Random Glucose 85 Calcium 8.2 L Phosphorus 3.2 Magnesium 2.2 Active Medications Generic Name Dose Route Start Last Admin Trade Name Jaspalq PRN Reason Stop Dose Admin Acetaminophen 650 mg 08/13/18 12:15 08/13/18 21:41 Tylenol Oral Solution - PO 650 mg Q6H PRN Administration PAIN LEVEL 6-10 Atorvastatin Calcium 20 mg 08/13/18 22:00 08/13/18 21:40 Lipitor - PO 20 mg HS [facility] Administration Cholecalciferol 1,000 unit 08/14/18 10:00 08/14/18 09:28 Vitamin D3 - PO Not Given DAILY [facility] Cyanocobalamin 1,000 mcg 08/13/18 13:00 08/14/18 09:22 Vitamin B12 - PO Not Given DAILY [facility] Heparin Sodium (Porcine) 5,000 unit 08/12/18 22:30 08/14/18 05:42 Heparin - SQ 5,000 unit TID [facility] Administration Dextrose/Sodium Chloride 1,000 mls @ 100 mls/hr 08/13/18 09:15 08/14/18 09:22 D5-Ns - IV 100 mls/hr ASDIR [facility] Administration Ceftriaxone Sodium 1 gm/ 50 mls @ 100 mls/hr 08/13/18 15:30 08/14/18 09:21 Dextrose IVPB 100 mls/hr DAILY [facility] Administration Protocol Lactobacillus Acidophilus 1 tab 08/13/18 13:00 08/14/18 09:22 Bacid - PO Not Given BID [facility] Memantine 10 mg 08/13/18 13:15 08/14/18 09:22 Namenda - PO Not Given BID [facility] Quetiapine Fumarate 25 mg 08/13/18 22:00 08/13/18 21:40 Seroquel - PO 25 mg HS [facility] Administration Sertraline HCl 50 mg 08/13/18 13:00 08/14/18 09:22 Zoloft - PO Not Given DAILY [facility] ASSESSMENT/PLAN: 82 yo female with PMH Alzheimer's Dimentia presented from the correction with new left hip fx after recent negative workup following a fall Left Hip Fracture -Pt evaluated 2 days prior to admission with negative workup for hip fracture, return with clear fracture on Hip/Pelvis Radiograph -Ortho consulted -Pt for OR today -Hold heparin -Pain controlled with Tylenol, can get Morphine 1mg if she has worsening pain -Incentive spirometry post op if pt tolerates Alzheimer's Dementia -Continue home medications -Namenda 10 mg PO BID -Zoloft 50 mg PO Daily -Seroquel 25 mg PO HS presumably for sleep or agitation at night UTI -UA noted, Pt on Ceftriaxone Day 3 -Extensive discussion with daughter, she is unaware of severe reaction to penicillins, unsure of reaction though -Pt tolerating well with no reaction at this time HLD -Lipitor 20 mg PO Daily DVT Prophylaxis -Heparin 5000 units SQ TID -held for OR FEN -Fluids: D5 NS @100 cc/hr -Electrolytes: No electrolyte abnormalities, BMP in AM -Nutrition: NPO for OR Disposition Med/Surg Visit type - Emergency Visit Emergency Visit: Yes ED Registration Date: 08/12/18 Care time: The patient presented to the Emergency Department on the above date and was hospitalized for further evaluation of their emergent condition. - New Patient This patient is new to me today: No - Critical Care Critical Care patient: No
[2018-08-14] MEDS ORDERED: CHOLECALCIFEROL (VITAMIN D3) 1,000 UNIT TABLET (FP) PO SCH (10:00)
[2018-08-14] MEDS ORDERED: BUPIVACAINE HCL/PF 0.5% (5MG/ML) 10 ML VIAL ONE (12:10)
[2018-08-14] MEDS ORDERED: MIDAZOLAM HCL 2 MG/2 ML SINGLE DOSE VIAL ONE (12:14)
[2018-08-14] MEDS ORDERED: LIDOCAINE HCL/PF 2% SDV 5ML VIAL ONE (12:39)
[2018-08-14] MEDS ORDERED: SUCCINYLCHOLINE CHLORIDE 200 MG/10 ML VIAL ONE (12:40)
[2018-08-14] MEDS ORDERED: ROCURONIUM BROMIDE 50 MG/5 ML VIAL ONE (12:40)
[2018-08-14] MEDS ORDERED: PROPOFOL 20 ML ONE (12:40)
[2018-08-14] MEDS ORDERED: ePHEDrine SULFATE 50 MG/1 ML AMPULE ONE (13:39)
[2018-08-14] MEDS ORDERED: TRANEXAMIC ACID 1000 MG/10 ML VIAL ONE (14:08)
[2018-08-14] MEDS ORDERED: SODIUM CHLORIDE 0.9% P/F 10 ML VIAL IJ ONE (14:56)
[2018-08-14] MEDS ORDERED: PHENYLEPHRINE HCL 10 MG/1 ML SINGLE DOSE VIAL ONE (14:56)
[2018-08-14] MEDS ORDERED: DEXTROSE 5%-NORMAL SALINE 1,000 ML IV SCH (16:11)
[2018-08-14] MEDS ORDERED: ACETAMINOPHEN 650 MG/20.3 ML ORAL SOLUTION (CUPS) PO PRN (16:11)
--- NOTE | 2018-08-14 16:57 | OP ---
DATE OF OPERATION: 08/14/2018 PREOPERATIVE DIAGNOSIS: Left hip displaced femoral neck fracture. POSTOPERATIVE DIAGNOSIS: Left hip displaced femoral neck fracture. PROCEDURE: Left hip hemiarthroplasty. SURGEON: Jose Nobles M.D. ADVERTISING SALES ASSOCIATE: Antonia Telles, whose skillful assistance was necessary for the safe performance of this procedure. Mr. Barajas was able to provide positioning , retraction, assist in the extraction of the femoral head and neck fragments as well as the insertion of orthopedic hardware. ANESTHESIA: Spinal. POSTOPERATIVE CONDITION: Stable. COMPLICATIONS: None. BLOOD LOSS: 200 mL. IMPLANTS: Zak symmetric stem size number 5 with 0 mm neck insert and 46 mm monopolar head. INDICATION: This is a pleasant woman who has dementia who has suffered multiple falls. Initially she had a negative x-ray but then was found to have a displaced left femoral neck fracture. Treatment options were discussed with the patient and her family. We recommended operative management. Discussed the option of nonoperative care with prolonged bedrest, with potential for very limited ambulatory ability along with multiple potential medical complications. We reviewed operative treatment which included replacement of the portion of the hip which is broken. This is called hemiarthroplasty. Risks of this procedure include bleeding, infection , neurovascular injury, need for further surgery, postoperative pain and stiffness , prosthetic fracture, hip instability, limb length discrepancy or rotational deformity. We reviewed medical risks such as heart attack, stroke, DVT, PE, and . We discussed the use of perioperative antibiotics, DVT prophylaxis. I addressed all the patient's and her family's questions. They voiced understanding and elected to proceed. DESCRIPTION OF PROCEDURE: The patient was brought to the operating room where spinal anesthesia was administered. She was then placed into the lateral decubitus position, careful to pad all bony prominences. The left lower extremity was then prepped and draped in the usual sterile fashion. A perioperative dose of antibiotics was given on the floor, and therefore no additional antibiotics were needed at the time of the procedure. The usual timeout procedure was performed. At this point incision was planned out over the greater trochanter. This was marked out. It was then carried through skin and subcutaneous tissue. Electrocautery was used maintain hemostasis. Dissection was now carried down to the fascia. The fascia was now split in line with its fibers, exposing the greater trochanter. The bursa was now reflected posteriorly, exposing the trochanter. The electrocautery was used to dissect posteriorly along the neck of the femur. The capsule and external rotators were elevated in a single layer. This exposed the femoral neck fracture. A neck cutting guide was inserted, and a neck cut was made using oscillating saw. The neck fragment was then removed. The capsule was now tagged using number 1 Vicryl sutures. The Corkscrew device was now inserted into the femoral head, and it was removed. The head was measured and a size 46 mm head was chosen. A trial was inserted and a good flexion seal was obtained. The trial was removed. The attention was now turned toward the femur. A femoral elevator was placed. A boxed osteotome was used to gain lateral entry into the femoral canal. A canal finder was passed. Broaching was performed progressively until a good fit was achieved. The broach was then removed. The canal was then prepared. A cement stopper was inserted. The cement was then injected into the femoral canal. It was then pressurized. The stem was now inserted down the femoral canal. The cement was allowed to set. Excess cement was debrided during this time. The trial components were now loaded on to the stem. It was reduced. On passive range of motion, the hip was found to be secure both anteriorly and posteriorly. Soft tissue tension felt appropriate. The hip was now re-dislocated. The trial components were removed. The formal components were then malleted on to Phan taper after carefully pulse lavaging it, to insure no debris. The abdomen was palpated one more time to insure no debris, and then pulse irrigated. It was now reduced. Again on passive range of motion it was found to be stable. The capsule and external rotators were now repaired utilizing two 2-0 drill holes in the greater trochanter. The previously placed number 1 Vicryls were then tied. The wound was irrigated again. The fascia was now approximated using number 1 Vicryl. Subcutaneous tissue was approximated deeply using 0 Vicryl, and subcutaneously using a 2-0 V-Loc suture. The skin was then closed using a running 3-0 nylon. Sterile dressing was placed. Patient was transferred to recovery room in stable condition. Cecilia MACHADO/[id number] MTDD
[2018-08-14] MEDS ORDERED: ONDANSETRON 4 MG/2 ML VIAL IVPUSH PRN (17:06)
[2018-08-14] MEDS ORDERED: LACTATED RINGERS SOLUTION 1,000 ML IV SCH (17:15)
[2018-08-14] MEDS: MORPHINE SULFATE 2 MG/ML VIAL IVPUSH PRN (18:05)
[2018-08-14] MEDS ORDERED: HALOPERIDOL LACTATE 5 MG/ML IM ONE (18:59)
[2018-08-14] MEDS: ATORVASTATIN CA 20 MG TABLET (FP) PO SCH (21:53)
[2018-08-14] MEDS: QUEtiapine FUMARATE 25 MG TABLET (FP) PO SCH (21:53)
[2018-08-15] MEDS ORDERED: cefTRIAXone SODIUM 1 GM VIAL ONE (09:18)
[2018-08-15] MEDS ORDERED: DEXTROSE 5%-WATER - 50 ML IVPB ONE (09:18)
[2018-08-15] MEDS: MEMANTINE HCL 10 MG TABLET (FP) PO SCH ×2 (09:20→22:02)
[2018-08-15] MEDS: CHOLECALCIFEROL (VITAMIN D3) 1,000 UNIT TABLET (FP) PO SCH (09:20)
[2018-08-15] MEDS: CEFTRIAXONE 1 GM in DEXTROSE 5%-WATER - 50 ML IVPB SCH (09:20)
[2018-08-15] MEDS: LACTOBACILLUS ACIDOPHILUS 1 TABLET PO SCH ×2 (09:20→22:02)
[2018-08-15] MEDS: SERTRALINE HCL 50 MG TABLET (FP) PO SCH (09:21)
[2018-08-15] MEDS: CYANOCOBALAMIN 1,000 MCG TABLET (FP) PO SCH (09:21)
[2018-08-15] MEDS: MORPHINE SULFATE 2 MG/ML VIAL IVPUSH PRN (09:35)
--- NOTE | 2018-08-15 09:46 | EKG ---
Test Reason : Blood Pressure : / mmHG Vent. Rate : 096 BPM Atrial Rate : 096 BPM P-R Int : 144 ms QRS Dur : 082 ms QT Int : 364 ms P-R-T Axes : 035 -26 081 degrees QTc Int : 459 ms NORMAL SINUS RHYTHM SEPTAL INFARCT , AGE UNDETERMINED NONSPECIFIC ST ABNORMALITY ABNORMAL ECG Confirmed by TISHA TEJADA MD ([id number]) on 08/15/2018 9:45:38 AM Referred By: Confirmed By:TISHA TEJADA MD
[2018-08-15 10:06] LABS: ANION GAP 7 MMOL/L (8-16); BLOOD UREA NITROGEN 11 mg/dL (7-18); CALCIUM 8.1 mg/dL (8.5-10.1); CHLORIDE 115 mmol/L (98-107); CO2 24 mmol/L (21-32); CREATININE 0.3 mg/dL (0.55-1.3); GLUCOSE,RANDOM 125 mg/dL (74-106); MAGNESIUM 1.8 mg/dL (1.8-2.4); PHOSPHOROUS 3.1 mg/dL (2.5-4.9); POTASSIUM 3.8 mmol/L (3.5-5.1); SODIUM 146 mmol/L (136-145)
[2018-08-15 10:14] LABS: HEMATOCRIT 28.8 % (32.4-45.2); HEMOGLOBIN 9.6 GM/dL (10.7-15.3); MCH 29.5 pg (25.7-33.7); MCHC 33.2 g/dl (32.0-36.0); MEAN CELL VOLUME 88.9 fl (80-96); MEAN PLT VOLUME 8.3 fl (7.5-11.1); PLATELET COUNT 217 K/MM3 (134-434); RBC 3.24 M/mm3 (3.60-5.2); RDW 13.8 % (11.6-15.6); WHITE BLOOD COUNT 8.3 K/mm3 (4.0-10.0)
--- NOTE | 2018-08-15 11:12 | PN ---
Progress Note (short form) - Note Progress Note: s/p left hip arthroplasy 08/14 awake and alert nad Vital Signs Period Temp Pulse Resp BP Sys/Ramirez Pulse Ox Last 24 Hr 96.0 F-99.6 F 75-95 16-22 106-144/48-80 93-100 cor-rrr lungs clear abd soft,nt ext no edema +lima CBC, BMP 08/15/18 09:20 08/15/18 09:20 Microbiology 08/12/18 20:46 Urine - Urine Clean Catch Urine Culture - Final NO GROWTH OBTAINED Microbiology 08/12/18 20:46 Urine - Urine Clean Catch Urine Culture - Final NO GROWTH OBTAINED Current Medications Acetaminophen (Tylenol Oral Solution -) 650 mg PO Q6H PRN PRN Reason: PAIN LEVEL 6-10 Last Admin: 08/14/18 18:32 Dose: 650 mg Atorvastatin Calcium (Lipitor -) 20 mg PO HS [facility] Last Admin: 08/14/18 21:53 Dose: 20 mg Cholecalciferol (Vitamin D3 -) 1,000 unit PO DAILY [facility] Last Admin: 08/15/18 09:20 Dose: 1,000 unit Cyanocobalamin (Vitamin B12 -) 1,000 mcg PO DAILY [facility] Last Admin: 08/15/18 09:21 Dose: 1,000 mcg Enoxaparin Sodium (Lovenox -) 40 mg SQ DAILY [facility] Fentanyl (Sublimaze Injection -) 25 mcg IVPUSH [id number] PRN PRN Reason: PAIN-PACU ORDER X 4 DOSES ONLY Ceftriaxone Sodium 1 gm/ (Dextrose) 50 mls @ 100 mls/hr IVPB DAILY [facility]; Protocol Last Admin: 08/15/18 09:20 Dose: 100 mls/hr Dextrose/Sodium Chloride (D5-Ns -) 1,000 mls @ 100 mls/hr IV ASDIR [facility] Last Admin: 08/14/18 17:25 Dose: Not Given Lactated Ringer's (Lactated Ringers Solution) 1,000 mls @ 75 mls/hr IV ASDIR [facility] Last Admin: 08/15/18 03:25 Dose: 75 mls/hr Lactobacillus Acidophilus (Bacid -) 1 tab PO BID [facility] Last Admin: 08/15/18 09:20 Dose: 1 tab Memantine (Namenda -) 10 mg PO BID [facility] Last Admin: 08/15/18 09:20 Dose: 10 mg Morphine Sulfate (Morphine Sulfate) 1 mg IVPUSH Q4H PRN PRN Reason: PAIN 6-10; IF TYLENOL NT WORK Last Admin: 08/15/18 09:35 Dose: 1 mg Ondansetron HCl (Zofran Injection) 4 mg IVPUSH Q6H PRN PRN Reason: NAUSEA AND/OR VOMITING Quetiapine Fumarate (Seroquel -) 25 mg PO HS [facility] Last Admin: 08/14/18 21:53 Dose: 25 mg Sertraline HCl (Zoloft -) 50 mg PO DAILY [facility] Last Admin: 08/15/18 09:21 Dose: 50 mg a/p hip fracture s/p hip surgery yesterday urine culture negative day #3 ceftriaxone can d/c antibiotics if okay with ortho please call back if needed Problem List - Problems (1) Urinary tract infection Code(s): N39.0 - URINARY TRACT INFECTION, SITE NOT SPECIFIED Qualifiers: Urinary tract infection type: site unspecified Hematuria presence: without hematuria Qualified Code(s): N39.0 - Urinary tract infection, site not specified (2) Hip fracture Code(s): S72.009A - FRACTURE OF UNSP PART OF NECK OF UNSP FEMUR, INIT Qualifiers: Encounter type: initial encounter Fracture type: closed Laterality: left Qualified Code(s): S72.002A - Fracture of unspecified part of neck of left femur, initial encounter for closed fracture (3) Allergy to multiple antibiotics Code(s): Z88.1 - ALLERGY STATUS TO OTHER ANTIBIOTIC AGENTS STATUS
--- NOTE | 2018-08-15 13:08 | PN ---
Progress Note, Physician Chief Complaint: s/- left hip nela arthoplasty under spinal anesthesia History of Present Illness: post op day one - Current Medication List Current Medications: Active Medications Acetaminophen (Tylenol Oral Solution -) 650 mg PO Q6H PRN PRN Reason: PAIN LEVEL 6-10 Last Admin: 08/14/18 18:32 Dose: 650 mg Atorvastatin Calcium (Lipitor -) 20 mg PO HS [facility] Last Admin: 08/14/18 21:53 Dose: 20 mg Cholecalciferol (Vitamin D3 -) 1,000 unit PO DAILY [facility] Last Admin: 08/15/18 09:20 Dose: 1,000 unit Cyanocobalamin (Vitamin B12 -) 1,000 mcg PO DAILY [facility] Last Admin: 08/15/18 09:21 Dose: 1,000 mcg Enoxaparin Sodium (Lovenox -) 40 mg SQ DAILY [facility] Fentanyl (Sublimaze Injection -) 25 mcg IVPUSH [id number] PRN PRN Reason: PAIN-PACU ORDER X 4 DOSES ONLY Ceftriaxone Sodium 1 gm/ (Dextrose) 50 mls @ 100 mls/hr IVPB DAILY [facility]; Protocol Last Admin: 08/15/18 09:20 Dose: 100 mls/hr Dextrose/Sodium Chloride (D5-Ns -) 1,000 mls @ 100 mls/hr IV ASDIR [facility] Last Admin: 08/14/18 17:25 Dose: Not Given Lactated Ringer's (Lactated Ringers Solution) 1,000 mls @ 75 mls/hr IV ASDIR [facility] Last Admin: 08/15/18 03:25 Dose: 75 mls/hr Lactobacillus Acidophilus (Bacid -) 1 tab PO BID [facility] Last Admin: 08/15/18 09:20 Dose: 1 tab Memantine (Namenda -) 10 mg PO BID [facility] Last Admin: 08/15/18 09:20 Dose: 10 mg Morphine Sulfate (Morphine Sulfate) 1 mg IVPUSH Q4H PRN PRN Reason: PAIN 6-10; IF TYLENOL NT WORK Last Admin: 08/15/18 09:35 Dose: 1 mg Ondansetron HCl (Zofran Injection) 4 mg IVPUSH Q6H PRN PRN Reason: NAUSEA AND/OR VOMITING Quetiapine Fumarate (Seroquel -) 25 mg PO HS [facility] Last Admin: 08/14/18 21:53 Dose: 25 mg Sertraline HCl (Zoloft -) 50 mg PO DAILY [facility] Last Admin: 08/15/18 09:21 Dose: 50 mg - Objective Vital Signs: Vital Signs Temperature 98.8 F 08/15/18 08:14 Pulse Rate 92 H 08/15/18 08:14 Respiratory Rate 20 08/15/18 08:14 Blood Pressure 144/69 08/15/18 08:14 O2 Sat by Pulse Oximetry (%) 93 L 08/15/18 09:00 Constitutional: Yes: Well Nourished Cardiovascular: Yes: WNL Respiratory: Yes: WNL Gastrointestinal: Yes: WNL Labs: CBC, BMP 08/15/18 09:20 08/15/18 09:20 INR, PTT INR 1.12 (0.83-1.09) H 08/13/18 07:06 Assessment/Plan No adverse effects of anesthesia, no nausea or vomiting, pain controlled. Dept of anesthesia will sign off care at this time
--- NOTE | 2018-08-15 14:50 | PN ---
Teaching Attending Note Name of Resident: Amrit Mckenzie ATTENDING PHYSICIAN STATEMENT I saw and evaluated the patient. I reviewed the resident's note and discussed the case with the resident. I agree with the resident's findings and plan as documented with exceptions below. SUBJECTIVE: Patient seen and examined. denies any pain. oriented to self, no other complaints. OBJECTIVE: Vital Signs Period Temp Pulse Resp BP Sys/Ramirez Pulse Ox Last 24 Hr 96.0 F-99.6 F 75-95 16-22 106-144/48-80 93-100 Intake & Output 08/12/18 08/13/18 08/14/18 08/15/18 23:59 23:59 23:59 23:59 Intake Total 800 2050 900 Output Total 130 1100 650 150 Balance -130 -300 1400 750 Weight 140 lb 125 lb 3 oz general: lying in bed in no acute distress Chest: limited exam due to lack of co-operation, no rales or wheezing Abdomen:soft, NT, ND Extremities, no edema/erythema or hematoma,positive LLE DP pulses Active Medications Acetaminophen (Tylenol Oral Solution -) 650 mg PO Q6H PRN PRN Reason: PAIN LEVEL 6-10 Last Admin: 08/14/18 18:32 Dose: 650 mg Atorvastatin Calcium (Lipitor -) 20 mg PO HS [facility] Last Admin: 08/14/18 21:53 Dose: 20 mg Cholecalciferol (Vitamin D3 -) 1,000 unit PO DAILY [facility] Last Admin: 08/15/18 09:20 Dose: 1,000 unit Cyanocobalamin (Vitamin B12 -) 1,000 mcg PO DAILY [facility] Last Admin: 08/15/18 09:21 Dose: 1,000 mcg Enoxaparin Sodium (Lovenox -) 40 mg SQ DAILY [facility] Fentanyl (Sublimaze Injection -) 25 mcg IVPUSH [id number] PRN PRN Reason: PAIN-PACU ORDER X 4 DOSES ONLY Ceftriaxone Sodium 1 gm/ (Dextrose) 50 mls @ 100 mls/hr IVPB DAILY [facility]; Protocol Last Admin: 08/15/18 09:20 Dose: 100 mls/hr Dextrose/Sodium Chloride (D5-Ns -) 1,000 mls @ 100 mls/hr IV ASDIR [facility] Last Admin: 08/14/18 17:25 Dose: Not Given Lactated Ringer's (Lactated Ringers Solution) 1,000 mls @ 75 mls/hr IV ASDIR [facility] Last Admin: 08/15/18 03:25 Dose: 75 mls/hr Lactobacillus Acidophilus (Bacid -) 1 tab PO BID [facility] Last Admin: 08/15/18 09:20 Dose: 1 tab Memantine (Namenda -) 10 mg PO BID [facility] Last Admin: 08/15/18 09:20 Dose: 10 mg Morphine Sulfate (Morphine Sulfate) 1 mg IVPUSH Q4H PRN PRN Reason: PAIN 6-10; IF TYLENOL NT WORK Last Admin: 08/15/18 09:35 Dose: 1 mg Ondansetron HCl (Zofran Injection) 4 mg IVPUSH Q6H PRN PRN Reason: NAUSEA AND/OR VOMITING Quetiapine Fumarate (Seroquel -) 25 mg PO HS [facility] Last Admin: 08/14/18 21:53 Dose: 25 mg Sertraline HCl (Zoloft -) 50 mg PO DAILY [facility] Last Admin: 08/15/18 09:21 Dose: 50 mg Laboratory Results - last 24 hr 08/15/18 08/15/18 09:20 09:20 WBC 8.3 RBC 3.24 L Hgb 9.6 L Hct 28.8 L MCV 88.9 MCH 29.5 MCHC 33.2 RDW 13.8 Plt Count 217 MPV 8.3 Sodium 146 H Potassium 3.8 Chloride 115 H Carbon Dioxide 24 Anion Gap 7 L BUN 11 Creatinine 0.3 L Creat Clearance w eGFR > 60 Random Glucose 125 H Calcium 8.1 L Phosphorus 3.1 Magnesium 1.8 ASSESSMENT AND PLAN: 82 yof with Alzheimer's dementia admitted with Left hip fracture, UTI, dehydration -Left femoral neck fracture s/p left hip hemiarthroplasty 08/14 -Acute anemia, suspect surgical blood loss/dilutional component -Lower uncomplicated UTI, failed outpatient treatment -Dehydration -Alzheimer's dementia Plan: Doing well post op. Monitor h/h D/c morphine Ceftriaxone day 3/, urine cultures neg. DVTPPX lovenox per ortho D/c lima, encourage incentive spirometry/OOB. PT eval. ID input noted. Decreased IVF. Continue home namenda/seroquel/zoloft.. Frequent orientation to environment, early ambulation post op, pain control to reduce alexus-operative delirium. dispo to SNF in 24-48 hours if continues to improve and disposition arranged.
[2018-08-15] MEDS ORDERED: LACTATED RINGERS SOLUTION 1,000 ML/1,000 ML INFUS.BAG IV SCH (15:00)
[2018-08-15] MEDS: ENOXAPARIN NA (PORCINE) 40 MG/0.4 ML DISP.SYRIN SQ SCH (15:21)
[2018-08-15] MEDS ORDERED: DOCUSATE SODIUM 100 MG CAPSULE (FP) PO PRN (15:30)
--- NOTE | 2018-08-15 16:29 | PN ---
Physical Exam: SUBJECTIVE: Patient seen and examined this AM. She is still pleasantly confused but appropriately answers questions. She says that she is having some hip soreness this AM but is otherwise comfortable. OBJECTIVE: Vital Signs Period Temp Pulse Resp BP Sys/Ramirez Pulse Ox Last 24 Hr 98.2 F-99.6 F 79-95 16-22 106-144/48-83 93-100 GENERAL: Oriented to person but not time or place, no acute distress HEAD: Normocephalic, atraumatic. EYES: PERRL, no scleral icterus EARS, NOSE, THROAT: oropharynx clear without exudates. Moist mucous membranes. LUNGS: CTA b/l, no crackles or wheezes HEART: Regular rate and rhythm, normal S1 and S2 without murmur ABDOMEN: Soft, nontender to palpation, normoactive bowel sounds MUSCULOSKELETAL: Tender to palpation around surgical site, decreased ROM likely secondary to pain, dressing clean dry and intact EXTREMITIES: 2+ pulses, warm, well-perfused. No peripheral edema. NEUROLOGICAL: Cranial nerves II-XII grossly intact. Appropriate responses today. Laboratory Results - last 24 hr 08/15/18 08/15/18 09:20 09:20 WBC 8.3 RBC 3.24 L Hgb 9.6 L Hct 28.8 L MCV 88.9 MCH 29.5 MCHC 33.2 RDW 13.8 Plt Count 217 MPV 8.3 Sodium 146 H Potassium 3.8 Chloride 115 H Carbon Dioxide 24 Anion Gap 7 L BUN 11 Creatinine 0.3 L Creat Clearance w eGFR > 60 Random Glucose 125 H Calcium 8.1 L Phosphorus 3.1 Magnesium 1.8 Active Medications Generic Name Dose Route Start Last Admin Trade Name Maxx PRN Reason Stop Dose Admin Acetaminophen 650 mg 08/15/18 14:51 Tylenol Oral Solution - PO Q4H PRN PAIN LEVEL 6-10 Atorvastatin Calcium 20 mg 08/14/18 22:00 08/14/18 21:53 Lipitor - PO 20 mg HS [facility] Administration Cholecalciferol 1,000 unit 08/15/18 10:00 18 09:20 Vitamin D3 - PO 1,000 unit DAILY [facility] Administration Cyanocobalamin 1,000 mcg 08/15/18 10:00 08/15/18 09:21 Vitamin B12 - PO 1,000 mcg DAILY [facility] Administration Docusate Sodium 100 mg 08/15/18 15:30 Colace - PO Q8H PRN CONSTIPATION Enoxaparin Sodium 40 mg 08/15/18 16:00 08/15/18 15:21 Lovenox - SQ 40 mg DAILY [facility] Administration Ferrous Sulfate 325 mg 08/16/18 10:00 Feosol - PO DAILY [facility] Ceftriaxone Sodium 1 gm/ 50 mls @ 100 mls/hr 08/15/18 10:00 08/15/18 09:20 Dextrose IVPB 100 mls/hr DAILY [facility] Administration Protocol Lactated Ringer's 1,000 ml in 1,000 mls @ 50 mls/hr 08/15/18 15:00 08/15/18 15:21 Lactated Ringers Solution IV 50 mls/hr ASDIR [facility] Administration Lactobacillus Acidophilus 1 tab 08/14/18 22:00 08/15/18 09:20 Bacid - PO 1 tab BID [facility] Administration Memantine 10 mg 08/14/18 22:00 08/15/18 09:20 Namenda - PO 10 mg BID [facility] Administration Ondansetron HCl 4 mg 08/14/18 17:06 Zofran Injection IVPUSH Q6H PRN NAUSEA AND/OR VOMITING Quetiapine Fumarate 25 mg 08/14/18 22:00 08/14/18 21:53 Seroquel - PO 25 mg HS [facility] Administration Sertraline HCl 50 mg 08/15/18 10:00 08/15/18 09:21 Zoloft - PO 50 mg DAILY [facility] Administration ASSESSMENT/PLAN: 82 yo female with PMH Alzheimer's Dimentia presented from the half-way with new left hip fx after recent negative workup following a fall Left Hip Fracture -Pt evaluated 2 days prior to admission with negative workup for hip fracture, return with clear fracture on Hip/Pelvis Radiograph -Ortho consulted -POD 1 Left Hemiarthroplasty -Pain control with Tylenol -Incentive spirometry if pt tolerates -OOB/PT as tolerated Alzheimer's Dementia -Continue home medications -Namenda 10 mg PO BID -Zoloft 50 mg PO Daily -Seroquel 25 mg PO HS presumably for sleep or agitation at night UTI -UA noted, Pt on Ceftriaxone Day 4 -Extensive discussion with daughter, she is unaware of severe reaction to penicillins, unsure of reaction though -Pt tolerating well with no reaction at this time HLD -Lipitor 20 mg PO Daily DVT Prophylaxis -Lovenox 40 mg SQ Daily FEN -Fluids: D5 NS @100 cc/hr -Electrolytes: No electrolyte abnormalities, BMP in AM -Nutrition: Dysphagia Puree diet, pt does not require thickened liquids Disposition Med/Surg Visit type - Emergency Visit Emergency Visit: Yes ED Registration Date: 08/12/18 Care time: The patient presented to the Emergency Department on the above date and was hospitalized for further evaluation of their emergent condition. - New Patient This patient is new to me today: No - Critical Care Critical Care patient: No
--- NOTE | 2018-08-15 16:30 | OP ---
Operative Note - Note: Operative Date: 08/14/18 Pre-Operative Diagnosis: L hip femoral neck fracture, displaced Operation: L hip hemiarthroplasty Implants: depuy cemented stem size 5 with 0mm neck insert and 46mm head Post-Operative Diagnosis: Same as Pre-op Surgeon: Jose Nobles Photographic Process Attendant: Babar Barajas Anesthesia: Spinal Estimated Blood Loss (mls): 200 Operative Report Dictated: Yes
--- NOTE | 2018-08-15 16:32 | PN ---
Progress Note (short form) - Note Progress Note: Pt lying in bed. Sleepy but arousable. Confused. Last Vital Signs Temp Pulse Resp BP Pulse Ox 98.2 F 92 H 20 142/83 93 L 08/15/18 15:09 08/15/18 15:09 08/15/18 08:14 08/15/18 15:09 08/15/18 09:00 LLE dressing CDI calves soft nt moving toes in response to LT 2+ dp Abnormal Lab Results 08/15/18 08/15/18 09:20 09:20 RBC 3.24 L Hgb 9.6 L Hct 28.8 L Sodium 146 H Chloride 115 H Anion Gap 7 L Creatinine 0.3 L Random Glucose 125 H Calcium 8.1 L a/p: pod 1 L hip hemiarthroplasty -pain control -dvt proph -oob/PT -f/u HCT (started iron/colace for post op anemia) -finish post op abx -hip precautions
[2018-08-15] MEDS: ACETAMINOPHEN 650 MG/20.3 ML ORAL SOLUTION (CUPS) PO PRN (18:40)
[2018-08-15] MEDS: QUEtiapine FUMARATE 25 MG TABLET (FP) PO SCH (22:02)
[2018-08-15] MEDS: ATORVASTATIN CA 20 MG TABLET (FP) PO SCH (22:02)
[2018-08-16 07:55] LABS: HEMATOCRIT 30.1 % (32.4-45.2); HEMOGLOBIN 10.2 GM/dL (10.7-15.3); MEAN CELL VOLUME 88.2 fl (80-96); MEAN PLT VOLUME 8.2 fl (7.5-11.1); PLATELET COUNT 221 K/MM3 (134-434); RBC 3.41 M/mm3 (3.60-5.2); RDW 13.7 % (11.6-15.6); WHITE BLOOD COUNT 9.6 K/mm3 (4.0-10.0)
[2018-08-16 09:15] LABS: ANION GAP 9 MMOL/L (8-16); BLOOD UREA NITROGEN 15 mg/dL (7-18); CALCIUM 7.9 mg/dL (8.5-10.1); CHLORIDE 109 mmol/L (98-107); CO2 24 mmol/L (21-32); CREATININE 0.4 mg/dL (0.55-1.3); GLUCOSE,RANDOM 95 mg/dL (74-106); POTASSIUM 3.3 mmol/L (3.5-5.1); SODIUM 142 mmol/L (136-145)
[2018-08-16] MEDS ORDERED: POTASSIUM CHLORIDE ORAL LIQUID 20 MEQ/15 ML PO ONE (09:46)
[2018-08-16] MEDS: CHOLECALCIFEROL (VITAMIN D3) 1,000 UNIT TABLET (FP) PO SCH (10:17)
[2018-08-16] MEDS: MEMANTINE HCL 10 MG TABLET (FP) PO SCH ×2 (10:17→21:01)
[2018-08-16] MEDS: SERTRALINE HCL 50 MG TABLET (FP) PO SCH (10:17)
[2018-08-16] MEDS: LACTOBACILLUS ACIDOPHILUS 1 TABLET PO SCH ×2 (10:17→21:01)
[2018-08-16] MEDS: CYANOCOBALAMIN 1,000 MCG TABLET (FP) PO SCH (10:17)
[2018-08-16] MEDS: FERROUS SO4 325 MG TABLET (FP) PO SCH (10:17)
[2018-08-16] MEDS ORDERED: DEXTROSE 5%-WATER - 50 ML IVPB ONE (10:34)
[2018-08-16] MEDS ORDERED: cefTRIAXone SODIUM 1 GM VIAL ONE (10:34)
[2018-08-16] MEDS ORDERED: SENNOSIDES 8.6MG TABLET (FP) PO PRN (10:59)
[2018-08-16] MEDS: ENOXAPARIN NA (PORCINE) 40 MG/0.4 ML DISP.SYRIN SQ SCH (11:00)
[2018-08-16] MEDS: CEFTRIAXONE 1 GM in DEXTROSE 5%-WATER - 50 ML IVPB SCH (11:01)
--- NOTE | 2018-08-16 11:31 | PN ---
Teaching Attending Note Name of Resident: Gary Fuentes ATTENDING PHYSICIAN STATEMENT I saw and evaluated the patient. I reviewed the resident's note and discussed the case with the resident. I agree with the resident's findings and plan as documented with exceptions below. SUBJECTIVE: Patient seen and examined, awake, oriented to self, no complaints. OBJECTIVE: Vital Signs Period Temp Pulse Resp BP Sys/Ramirez Pulse Ox Last 24 Hr 98.2 F-100.5 F 92-108 20-20 123-156/74-88 94 Intake & Output 08/13/18 08/14/18 08/15/18 08/16/18 23:59 23:59 23:59 23:59 Intake Total 800 2050 1013 600 Output Total 1100 650 150 Balance -300 1400 863 600 Weight 125 lb 3 oz General: sitting in bed in no acute distress Chest: poor effort, no rales or wheezing Abdomen:Soft, obese, NT, positive bowel sounds Extremities: no edema, well perfuse, wound site clean Active Medications Acetaminophen (Tylenol Oral Solution -) 650 mg PO Q4H PRN PRN Reason: PAIN LEVEL 6-10 Last Admin: 08/15/18 18:40 Dose: 650 mg Atorvastatin Calcium (Lipitor -) 20 mg PO HS [facility] Last Admin: 08/15/18 22:02 Dose: 20 mg Cholecalciferol (Vitamin D3 -) 1,000 unit PO DAILY [facility] Last Admin: 08/16/18 10:17 Dose: 1,000 unit Cyanocobalamin (Vitamin B12 -) 1,000 mcg PO DAILY [facility] Last Admin: 08/16/18 10:17 Dose: 1,000 mcg Docusate Sodium (Colace -) 100 mg PO TID [facility] Enoxaparin Sodium (Lovenox -) 40 mg SQ DAILY [facility] Last Admin: 08/16/18 11:00 Dose: 40 mg Ferrous Sulfate (Feosol -) 325 mg PO DAILY [facility] Last Admin: 08/16/18 10:17 Dose: 325 mg Ceftriaxone Sodium 1 gm/ (Dextrose) 50 mls @ 100 mls/hr IVPB DAILY [facility]; Protocol Last Admin: 08/16/18 11:01 Dose: 100 mls/hr Lactobacillus Acidophilus (Bacid -) 1 tab PO BID [facility] Last Admin: 08/16/18 10:17 Dose: 1 tab Memantine (Namenda -) 10 mg PO BID [facility] Last Admin: 08/16/18 10:17 Dose: 10 mg Ondansetron HCl (Zofran Injection) 4 mg IVPUSH Q6H PRN PRN Reason: NAUSEA AND/OR VOMITING Polyethylene Glycol (Miralax (For Daily Use) -) 17 gm PO DAILY [facility] Quetiapine Fumarate (Seroquel -) 25 mg PO HS [facility] Last Admin: 08/15/18 22:02 Dose: 25 mg Senna (Senna -) 2 tab PO HS PRN PRN Reason: CONSTIPATION Sertraline HCl (Zoloft -) 50 mg PO DAILY [facility] Last Admin: 08/16/18 10:17 Dose: 50 mg Laboratory Results - last 24 hr 08/16/18 08/16/18 07:30 07:30 WBC 9.6 RBC 3.41 L Hgb 10.2 L Hct 30.1 L MCV 88.2 MCH 30.0 MCHC 34.0 RDW 13.7 Plt Count 221 MPV 8.2 Sodium 142 Potassium 3.3 L Chloride 109 H Carbon Dioxide 24 Anion Gap 9 BUN 15 Creatinine 0.4 L Creat Clearance w eGFR > 60 Random Glucose 95 Calcium 7.9 L Phosphorus 3.0 Magnesium 2.0 ASSESSMENT AND PLAN: 82 yof with Alzheimer's dementia admitted with Left hip fracture, UTI, dehydration -Left femoral neck fracture s/p left hip hemiarthroplasty 08/14 -Acute anemia, suspect surgical blood loss/dilutional component -Lower uncomplicated UTI, failed outpatient treatment -Low grade fever, post op, suspect atelectasis -Dehydration -Alzheimer's dementia Plan: Doing well post op. h/h stable, tylenol prn for pain Weight bearing ortho. s/p 5 days of ceftriaxone, urine cx neg, d/c abx. DVTTPx lovenox per ortho. Encourage IS, OOB. D/c IVF. Continue home namenda/seroquel/zoloft.. Frequent orientation to environment, early ambulation post op, pain control to reduce alexus-operative delirium. dispo to SNF in 24-48 hours pending PT eval and disposition arrangements.
[2018-08-16] MEDS: POLYETHYLENE GLYCOL 3350 119 GM BTL PO SCH (12:20)
--- NOTE | 2018-08-16 12:40 | PN ---
Physical Exam: SUBJECTIVE: Limited due to dementia. No acute events overnight. No complaints today. Pt reports pain is very tolerable at the current moment. No BM's so far OBJECTIVE: Vital Signs Period Temp Pulse Resp BP Sys/Ramirez Pulse Ox Last 24 Hr 98.2 F-100.5 F 92-108 20-20 101-156/54-88 94 GENERAL: Oriented to person but not time or place, no acute distress, sitting up in bed having breakfast HEENT: Moist mucous membranes. LUNGS: CTA b/l, no crackles or wheezes HEART: Regular rate and rhythm, normal S1 and S2 without murmur ABDOMEN: Soft, NT/ND, normoactive bowel sounds MUSCULOSKELETAL: dressing C/D/I, ROM limited 2/2 to pain, EXTREMITIES: 2+ pulses, warm, well-perfused. No peripheral edema. NEUROLOGICAL: Cranial nerves II-XII grossly intact. Appropriate responses today. Laboratory Results - last 24 hr 08/16/18 08/16/18 07:30 07:30 WBC 9.6 RBC 3.41 L Hgb 10.2 L Hct 30.1 L MCV 88.2 MCH 30.0 MCHC 34.0 RDW 13.7 Plt Count 221 MPV 8.2 Sodium 142 Potassium 3.3 L Chloride 109 H Carbon Dioxide 24 Anion Gap 9 BUN 15 Creatinine 0.4 L Creat Clearance w eGFR > 60 Random Glucose 95 Calcium 7.9 L Phosphorus 3.0 Magnesium 2.0 Active Medications Generic Name Dose Route Start Last Admin Trade Name Freq PRN Reason Stop Dose Admin Acetaminophen 650 mg 08/15/18 14:51 08/15/18 18:40 Tylenol Oral Solution - PO 650 mg Q4H PRN Administration PAIN LEVEL 6-10 Atorvastatin Calcium 20 mg 08/14/18 22:00 08/15/18 22:02 Lipitor - PO 20 mg HS CLEMENTINA Administration Cholecalciferol 1,000 unit 08/15/18 10:00 08/16/18 10:17 Vitamin D3 - PO 1,000 unit DAILY CLEMENTINA Administration Cyanocobalamin 1,000 mcg 08/15/18 10:00 08/16/18 10:17 Vitamin B12 - PO 1,000 mcg DAILY CLEMENTINA Administration Docusate Sodium 100 mg 08/16/18 11:30 Colace - PO TID CLEMENTINA Enoxaparin Sodium 40 mg 08/15/18 16:00 08/16/18 11:00 Lovenox - SQ 40 mg DAILY CLEMENTINA Administration Ferrous Sulfate 325 mg 08/16/18 10:00 08/16/18 10:17 Feosol - PO 325 mg DAILY CLEMENTINA Administration Lactobacillus Acidophilus 1 tab 08/14/18 22:00 08/16/18 10:17 Bacid - PO 1 tab BID CLEMENTINA Administration Memantine 10 mg 08/14/18 22:00 08/16/18 10:17 Namenda - PO 10 mg BID CLEMENTINA Administration Ondansetron HCl 4 mg 08/14/18 17:06 Zofran Injection IVPUSH Q6H PRN NAUSEA AND/OR VOMITING Polyethylene Glycol 17 gm 08/16/18 11:00 Miralax (For Daily Use) - PO DAILY [facility]MENTINA Quetiapine Fumarate 25 mg 08/14/18 22:00 08/15/18 22:02 Seroquel - PO 25 mg HS CLEMENTINA Administration Senna 2 tab 08/16/18 10:59 Senna - PO HS PRN CONSTIPATION Sertraline HCl 50 mg 08/15/18 10:00 08/16/18 10:17 Zoloft - PO 50 mg DAILY CLEMENTINA Administration ASSESSMENT/PLAN: L femoral neck fracture s/p hemiarthroplasty Acute normocytic anemia UTI, uncomplicated Dementia --Hemiarthroplasty 08/14 --H/H now stable --continue Tylenol for PRN pain control --Will defer to ortho rec's for activity level --Completed Rocephin 1gm x5 days --UCx negative currently --Will follow off of antibiotics for this time --Monitor temperatures --Can d/c IVF --Continue home doses of Seroquel and Zoloft --PPX - DVT - Lovenox 40 qdaily; cleared with ortho team Dispo: Awaiting possible SNF placement pending PT Case discussed with Dr. Chandu charles, Do - IM PGY-2 Visit type - Emergency Visit Emergency Visit: Yes ED Registration Date: 08/12/18 Care time: The patient presented to the Emergency Department on the above date and was hospitalized for further evaluation of their emergent condition. - New Patient This patient is new to me today: Yes Date on this admission: 08/16/18 - Critical Care Critical Care patient: No
--- NOTE | 2018-08-16 13:26 | PN ---
Progress Note, Physician History of Present Illness: Resting in bed. PT did not come yet today. No pain at rest. - Current Medication List Current Medications: Active Medications Acetaminophen (Tylenol Oral Solution -) 650 mg PO Q4H PRN PRN Reason: PAIN LEVEL 6-10 Last Admin: 08/15/18 18:40 Dose: 650 mg Atorvastatin Calcium (Lipitor -) 20 mg PO HS [facility] Last Admin: 08/15/18 22:02 Dose: 20 mg Cholecalciferol (Vitamin D3 -) 1,000 unit PO DAILY [facility] Last Admin: 08/16/18 10:17 Dose: 1,000 unit Cyanocobalamin (Vitamin B12 -) 1,000 mcg PO DAILY [facility] Last Admin: 08/16/18 10:17 Dose: 1,000 mcg Docusate Sodium (Colace -) 100 mg PO TID [facility] Enoxaparin Sodium (Lovenox -) 40 mg SQ DAILY [facility] Last Admin: 08/16/18 11:00 Dose: 40 mg Ferrous Sulfate (Feosol -) 325 mg PO DAILY [facility] Last Admin: 08/16/18 10:17 Dose: 325 mg Lactobacillus Acidophilus (Bacid -) 1 tab PO BID [facility] Last Admin: 08/16/18 10:17 Dose: 1 tab Memantine (Namenda -) 10 mg PO BID [facility] Last Admin: 08/16/18 10:17 Dose: 10 mg Ondansetron HCl (Zofran Injection) 4 mg IVPUSH Q6H PRN PRN Reason: NAUSEA AND/OR VOMITING Polyethylene Glycol (Miralax (For Daily Use) -) 17 gm PO DAILY [facility] Quetiapine Fumarate (Seroquel -) 25 mg PO HS [facility] Last Admin: 08/15/18 22:02 Dose: 25 mg Senna (Senna -) 2 tab PO HS PRN PRN Reason: CONSTIPATION Sertraline HCl (Zoloft -) 50 mg PO DAILY [facility] Last Admin: 08/16/18 10:17 Dose: 50 mg - Objective Vital Signs: Vital Signs Temperature 98.4 F 08/16/18 09:25 Pulse Rate 97 H 08/16/18 09:25 Respiratory Rate 20 08/16/18 09:25 Blood Pressure 101/54 L 08/16/18 09:25 O2 Sat by Pulse Oximetry (%) 94 L 08/15/18 21:00 Constitutional: Yes: Well Nourished, No Distress, Calm Musculoskeletal: Yes: Other (Dressing CDI, No sign of infection. Compartments soft. Calf non-tender. NVID.) Labs: CBC, BMP 08/16/18 07:30 08/16/18 07:30 INR, PTT INR 1.12 (0.83-1.09) H 08/13/18 07:06 Assessment/Plan POD #2 s/p Left hip hemiarthroplasty. -PT WBAT -Hip precautions -Discharge planning -DVT prophylaxis -pain control
[2018-08-16] MEDS: DOCUSATE SODIUM 100 MG CAPSULE (FP) PO SCH ×3 (16:09→21:02)
[2018-08-16] MEDS: ACETAMINOPHEN 650 MG/20.3 ML ORAL SOLUTION (CUPS) PO PRN (20:56)
[2018-08-16] MEDS: ATORVASTATIN CA 20 MG TABLET (FP) PO SCH (21:00)
[2018-08-16] MEDS: QUEtiapine FUMARATE 25 MG TABLET (FP) PO SCH (21:00)
[2018-08-17 05:12] VITALS: PULSE 86
[2018-08-17] MEDS: DOCUSATE SODIUM 100 MG CAPSULE (FP) PO SCH ×2 (06:39→13:29)
[2018-08-17 07:41] LABS: HEMATOCRIT 27.3 % (32.4-45.2); HEMOGLOBIN 9.2 GM/dL (10.7-15.3); MCH 29.7 pg (25.7-33.7); MCHC 33.7 g/dl (32.0-36.0); MEAN CELL VOLUME 88.1 fl (80-96); MEAN PLT VOLUME 8.5 fl (7.5-11.1); PLATELET COUNT 237 K/MM3 (134-434); RDW 13.6 % (11.6-15.6); WHITE BLOOD COUNT 8.2 K/mm3 (4.0-10.0)
[2018-08-17 09:20] LABS: BLOOD UREA NITROGEN 13 mg/dL (7-18); CHLORIDE 108 mmol/L (98-107); CREATININE 0.3 mg/dL (0.55-1.3); GLUCOSE,RANDOM 95 mg/dL (74-106); POTASSIUM 3.5 mmol/L (3.5-5.1); SODIUM 143 mmol/L (136-145)
[2018-08-17 09:21] LABS: ANION GAP 7 MMOL/L (8-16); CALCIUM 8.1 mg/dL (8.5-10.1); CO2 28 mmol/L (21-32)
[2018-08-17] MEDS: LACTOBACILLUS ACIDOPHILUS 1 TABLET PO SCH (09:26)
[2018-08-17] MEDS: ENOXAPARIN NA (PORCINE) 40 MG/0.4 ML DISP.SYRIN SQ SCH (09:26)
[2018-08-17] MEDS: SERTRALINE HCL 50 MG TABLET (FP) PO SCH (09:26)
[2018-08-17] MEDS: FERROUS SO4 325 MG TABLET (FP) PO SCH (09:26)
[2018-08-17] MEDS: CYANOCOBALAMIN 1,000 MCG TABLET (FP) PO SCH (09:26)
[2018-08-17] MEDS: CHOLECALCIFEROL (VITAMIN D3) 1,000 UNIT TABLET (FP) PO SCH (09:26)
[2018-08-17] MEDS: POLYETHYLENE GLYCOL 3350 119 GM BTL PO SCH (11:17)
[2018-08-17] MEDS: MEMANTINE HCL 10 MG TABLET (FP) PO SCH (11:17)
--- NOTE | 2018-08-17 12:10 | DS ---
Physical Exam: SUBJECTIVE: Patient seen and examined, no pain or complaints, pleasantly confused. OBJECTIVE: Vital Signs Period Temp Pulse Resp BP Sys/Ramirez Pulse Ox Last 24 Hr 98 F-100.2 F 86-104 20-21 110-130/59-70 91 PHYSICAL EXAM GENERAL: AA, oriented to self, in no acute distress in bed HEENT: PERRL CVS:S1S2 regular Chest: poor effort, no rales or wheezing, limited exam due to lack of co- operation Abdomen:Soft, NT, ND, positive bowel sounds Extremities: left thigh dressing clean, no swelling/erythema or discharge noted , positive pedal pulses LABS Laboratory Results - last 24 hr 08/17/18 08/17/18 06:45 06:45 WBC 8.2 RBC 3.10 L Hgb 9.2 L Hct 27.3 L MCV 88.1 MCH 29.7 MCHC 33.7 RDW 13.6 Plt Count 237 MPV 8.5 Sodium 143 Potassium 3.5 Chloride 108 H Carbon Dioxide 28 Anion Gap 7 L BUN 13 Creatinine 0.3 L Creat Clearance w eGFR > 60 Random Glucose 95 Calcium 8.1 L HOSPITAL COURSE: Date of Admission:08/12/18 Date of Discharge: 08/17/18 Minutes to complete discharge: 40 Discharge Summary Reason For Visit: URINARY TRACT INFECTION / FRACTURE OF HIP Current Active Problems Allergy to multiple antibiotics (Acute) Hip fracture (Acute) Hospital Course: Patient received left hip arthroplasty on 08/15/2018 with orthopedic with no complications. She had post operative anemia which stabilized around 9 with no concerns. She is started on iron supplementation by orthopedic. She is recommended Lovenox 40 mg daily for 1 month by orthopedic. She had reported allergy to piperacillin but tolerated ceftriaxone will during her hospital stay. She finished 5 day course for urinary tract infection and her urine cultures were negative. She was seen by infectious disease and recommendations were followed. Condition: Stable - Instructions Diet, Activity, Other Instructions: You were admitted to the hospital after sustaining a [facility] fracture at the [facility]. You were seen by an orthopedic surgeon who recommended surgical repair of the hip. The surgery was uncomplicated and you did well following the procedure and your pain was well controlled. You are medically safe for discharge from the hospital. It is recommended that you continue to work with physical therapy at the [facility] for continued improvement of your range of motion and ability to walk safely. You have finished treatment for urine infection, and were seen by infectious disease. PLEASE NOTE THAT YOU HAVE REPORTED ALLERGY TO PIPERACILLIN BUT YOUR TOLERATED CEFTRIAXONE WELL IN THE HOSPITAL. You are started on oral iron by orthopedic. Please ensure that you are on aggressive bowel regimen to avoid constipation. Continue Lovenox 40 mg subq daily injections for 4 weeks. Further continuation of injections or need for Aspirin will be addressed by orthopedic on next visit. Continue all your other medications as before. Follow up with orthopedic in 7-10 days for suture removal. Keep wound area clean, cover while shower and place a new dressing after shower daily. Left hip precautions while working with physical therapy. Following blood work in 3-4 days: CBC (Complete blood count). Strongly recommend incentive spirometry with assistance 10 times every hour while awake. If you have severe worsening of pain, swelling, bleeding, or pus around the surgical site, or fevers or chils, you should call your surgeon, Dr. Nobles, or return to the emergency room for further evaluation. Referrals: Jose Nobles MD [Staff Physician] - Marlene Moran [Primary Care Provider] - Disposition: [facility] - Home Medications Comprehensive Discharge Medication List: Ambulatory Orders Acetaminophen [Tylenol] 325 mg PO Q4H PRN 08/12/18 Atorvastatin Calcium [Lipitor] 20 mg PO DAILY 08/12/18 Cholecalciferol (Vitamin D3) [Vitamin D3 -] 1,000 unit PO DAILY 08/12/18 Cyanocobalamin [Vitamin B12 -] 1,000 mcg PO DAILY 08/12/18 Lactobacillus Acidophilus [Bacid -] 1 each PO BID 08/12/18 Memantine HCl [Namenda -] 20 mg PO DAILY 08/12/18 Quetiapine Fumarate [Seroquel -] 25 mg PO HS 08/12/18 Sertraline HCl [Zoloft -] 50 mg PO DAILY 08/12/18 clonazePAM [Klonopin -] 0.5 mg PO DAILY 08/12/18 Docusate Sodium [Colace -] 100 mg PO TID capsule 08/17/18 Enoxaparin [Lovenox -] 40 mg SQ DAILY 30 Days #30 disp.syrin 08/17/18 Ferrous Sulfate [Feosol] 325 mg PO DAILY ud 08/17/18 Polyethylene Glycol 3350 [Miralax 119 gm Btl -] 17 gm PO DAILY bottle 08/17/18 Sennosides [Senna -] 2 tab PO HS tablet 08/17/18 This patient is new to me today: No Emergency Visit: Yes ED Registration Date: 08/12/18 Care time: The patient presented to the Emergency Department on the above date and was hospitalized for further evaluation of their emergent condition. Critical Care patient: No - Discharge Referral Referred to [facility] Med [facility].C.: No
[2018-08-17 12:40] VITALS: BP 109/85; TEMP 98.2
--- NOTE | 2018-08-18 12:38 | PATH ---
Surgical Pathology Report Patient Name: MALLIKA NIEVES [facility]. Rec. #: [id number] /Age/Gender: 1935 (Age: 82) / F Account: [id number] Location: [address] [place] [address]/[facility] Taken: 08/14/2018 Received: 08/15/2018 Reported: 08/18/2018 Physicians: Cecilia Avila M.D. Specimen(s) Received LEFT FEMORAL HEAD Clinical History Fracture of left hip Final Diagnosis BONE, FEMORAL HEAD, LEFT, HEMIARTHROPLASTY: BONE WITH INTERSTITIAL HEMORRHAGE CONSISTENT WITH FRACTURE. Electronically Signed Magdalene Low M.D. Gross Description Received in formalin, labeled "left femoral head," is a 4.0 x 4.0 x 3.9 cm. femoral head with a portion of femoral neck attached. The margin of resection is red-brown, jagged and hemorrhagic. No areas of eburnation are identified. The articular surface is sanders-yellow and focally granular. The underlying trabecular bone is yellow, hard and focally hemorrhagic. Also received is a missing container is a 4.0 x 4.0 x 1.7 cm aggregate of hemorrhagic bone. A communications representative section is submitted in one cassette, following decalcification. /08/15/201808/15/2018
== END 2018-08-17 15:26 | DRG 470 ==
LOC: JER 17:30 → JERBED 20:13 → J6S 08-13 03:27
PROVIDERS: ADMIT Internal Medicine; ATTEND Hospitalist
PROC: 0SRS0J9 Replacement of Left Hip Joint, Femoral Surface with Synthetic Substitute, Cemented, Open Approach (ICD-10-PCS; principal; 2018-08-14 13:00)
DX: S72.002A Fracture of unspecified part of neck of left femur, initial encounter for closed fracture (principal); N39.0 Urinary tract infection, site not specified; D62 Acute posthemorrhagic anemia; G30.9 Alzheimer's disease, unspecified; F02.80 Dementia in other diseases classified elsewhere, unspecified severity, without behavioral disturbance, psychotic disturbance, mood disturbance, and anxiety; I25.10 Atherosclerotic heart disease of native coronary artery without angina pectoris; F32.9 Major depressive disorder, single episode, unspecified; E86.0 Dehydration; E53.8 Deficiency of other specified B group vitamins; E55.9 Vitamin D deficiency, unspecified; W18.39XA Other fall on same level, initial encounter; Y93.89 Activity, other specified; Z88.1 Allergy status to other antibiotic agents; Z88.0 Allergy status to penicillin
CPT/HCPCS: 36415; 70450-TC; 71045-TC-FY; 72125-TC; 73502-TC-LT-FY; 73523-TC-FY; 80048; 80053; 81003; 81015; 82550; 83735; 84100; 84484; 85025; 85027; 85610; 85730; 86850; 86900; 86901; 87086; 88305-TC; 88311-TC; 93005; 93010; 94010; 94760; 97116-GP; 97162-GP; 99283-25; 99285-25; J0131; J1644; J7030

== ENCOUNTER 2018-10-01 23:20 | Inpatient (IN) | payer OTHER ==
[2018-10-02 00:21] VITALS: BMI 26.5
--- NOTE | 2018-10-02 00:45 | PDOC ---
History of Present Illness - General Chief Complaint: Urinary Problem Stated Complaint: Urinary Problem Time Seen by Provider: 10/02/18 00:45 History Source: Family (daughter) - History of Present Illness Initial Comments: 10/02/18 02:02 This is a 82year old female with a PMH of alzheimers, dyslipidemia that was brought to ED from [facility] for lethargy, fever and worsening infection. She was here at [facility] ED yesterday s/p fall. The patient was fount to have nl CT and discharged back to [facility] on Bactrim for UTI. According to her daughter that is present at bedside, her condition got worse today. She is much more lethargic. On arrival to ED she was placed on non rebreather, saturating in 80s-low 90s, sepsis protocol was initiated. Past History - Past Medical History Allergies/Adverse Reactions: Allergies Allergy/AdvReac Type Severity Reaction Status Date / Time levofloxacin Allergy Verified 10/02/18 00:21 piperacillin Allergy Verified 10/02/18 00:21 tazobactam Allergy Verified 10/02/18 00:21 tetracycline Allergy Verified 10/02/18 00:21 Home Medications: Ambulatory Orders Acetaminophen [Tylenol] 325 mg PO Q4H PRN 08/12/18 Atorvastatin Calcium [Lipitor] 20 mg PO DAILY 08/12/18 Cholecalciferol (Vitamin D3) [Vitamin D3 -] 1,000 unit PO DAILY 08/12/18 Cyanocobalamin [Vitamin B12 -] 1,000 mcg PO DAILY 08/12/18 Lactobacillus Acidophilus [Bacid -] 1 each PO BID 08/12/18 Memantine HCl [Namenda -] 20 mg PO DAILY 08/12/18 Quetiapine Fumarate [Seroquel -] 25 mg PO HS 08/12/18 Sertraline HCl [Zoloft -] 50 mg PO DAILY 08/12/18 clonazePAM [Klonopin -] 0.5 mg PO DAILY 08/12/18 Docusate Sodium [Colace -] 100 mg PO TID capsule 08/17/18 Enoxaparin [Lovenox -] 40 mg SQ DAILY 30 Days #30 disp.syrin 08/17/18 Ferrous Sulfate [Feosol] 325 mg PO DAILY ud 08/17/18 Polyethylene Glycol 3350 [Miralax 119 gm Btl -] 17 gm PO DAILY bottle 08/17/18 Sennosides [Senna -] 2 tab PO HS tablet 08/17/18 Sulfamethoxazole/Trimethoprim [Bactrim Ds -] 1 tab PO BID #14 tablet 10/01/18 Anemia: Yes Cardiac Disorders: Yes (artherosclerotic heart disease.) COPD: No CHF: No Dementia: Yes (metabolic encephalopathy w/diff walking) Diabetes: Yes Hypercholesterolemia: Yes Psychiatric Problems: Yes (anxiety, major depressive disorder, psychotic ds w/ delusional episodes.) - Immunization History Immunization Up to Date: Yes - Suicide/Smoking/Psychosocial Hx Smoking History: Unknown if ever smoked Have you smoked in the past 12 months: No Information on smoking cessation initiated: No Hx Alcohol Use: No Drug/Substance Use Hx: No Substance Use Type: None Review of Systems - Review of Systems Able to Perform ROS?: No *Physical Exam - Vital Signs Last Vital Signs Temp Pulse Resp BP Pulse Ox 100.8 F H 129 H 24 H 107/63 98 10/01/18 23:20 10/01/18 23:20 10/01/18 23:20 10/01/18 23:20 10/01/18 23:20 - Physical Exam General Appearance: Yes: Moderate Distress HEENT: positive: GILDA Respiratory/Chest: negative: Crackles, Rales, Rhonchi, Wheezing Cardiovascular: positive: Regular Rhythm, Regular Rate, S1, S2. negative: Edema , Murmur Gastrointestinal/Abdominal: positive: Soft. negative: Pulsatile Mass, Rebound Moderate Sedation - Procedure Monitoring Vital Signs: Procedure Monitoring Vital Signs Temperature 100.8 F H 10/01/18 23:20 Pulse Rate 129 H 10/01/18 23:20 Respiratory Rate 24 H 10/01/18 23:20 Blood Pressure 107/63 10/01/18 23:20 O2 Sat by Pulse Oximetry (%) 98 10/01/18 23:20 ED Treatment Course - LABORATORY CBC & Chemistry Diagram: 10/02/18 01:15 10/02/18 01:15 Medical Decision Making - Medical Decision Making 10/02/18 02:08 The patient presented to ED with fever, hypoxia, lethargy, tachycardia, treated with Bactrim with no improvement. She was given fluids, Aztreonam IV, blood cultures, ABG, UA urine cultures. EKG, CXR ordered. 10/02/18 02:58 Hospitalist team was microblogged for admission. The patient was found to be hypotensive with MAP of 62, desaturating to 70s, we cont with fluids, antibiotics. Her daughter contacted her sister and expressed DNR/DNI wish that was signed here in ED. After conversation with night hospitalist, the family is leaning towards comfort care measures only when the other daughter arrives to the hospital. *DC/Admit/Observation/Transfer Diagnosis at time of Disposition: Sepsis due to urinary tract infection - Discharge Dispostion Condition at time of disposition: Guarded Decision to Admit order: Yes - Referrals Referrals: Melanie Boyer MD [Primary Care Provider] - - Patient Instructions - Post Discharge Activity
--- NOTE | 2018-10-02 00:52 | PDOC ---
Attending Attestation - HPI HPI: 10/02/18 02:11 The patient is an 82-year-old female with past medical history significant for Alzheimer's dementia, UTI, MDD, and CAD presents to the emergency department from [facility] via EMS for urinary evaluation. Per daughter at the bedside, the patient seems more agitated than baseline. The daughter reports the patient becomes agitated when she had a UTI flare up. The daughter reports, her sister called the [facility] at 9:00 pm to follow up on the IV antibiotic the patient was on when she was informed that the patient would be transferred to the ER for further work up. The patient was noted to have a fever at the [facility]. The daughter denies a cough. The patient was seen at the ER on 10/01/2018, s/p a fall with negative CT cervical spine CT. The patient was discharged to the [facility] with Bactrim for the UTI. Allergies: tazobactam, tetracycline, levofloxacin, piperacillin PCP: [facility]. - Physicial Exam PE: 10/02/18 02:11 GENERAL: . Awake, alert and agitated , in no acute distress HEAD: No signs of trauma ENT: Auricles normal inspection, hearing grossly normal, nares patent, oropharynx clear without exudates. +very dry mucous membranes. NECK: Normal ROM, supple, no lymphadenopathy, JVD, or masses LUNGS: Diminished breath sounds bilaterally. No wheezes, and no crackles HEART: + tachycardia. Regular rate and rhythm normal S1 and S2, no murmurs, rubs or gallops ABDOMEN: +Suprapubic tenderness. Soft, nontender. No guarding, no rebound. No masses EXTREMITIES: Normal range of motion, no edema. No clubbing or cyanosis. No cords, erythema, or tenderness NEUROLOGICAL: The patient is agitated, confused and altered. SKIN: +hot to touch. Dry, normal turgor, no rashes or lesions noted. <Cyndi Moore - Last Filed: 10/02/18 02:11> - Resident Resident Name: Clementine Patricia - ED Attending Attestation I have performed the following: I have examined & evaluated the patient, The case was reviewed & discussed with the resident, I agree w/resident's findings & plan, Exceptions are as noted - Critical Care Time Total Critical Care Time: 45 Critical Care Statement: The care of this patient involved high complexity decision making to prevent further life threatening deterioration of the patient 's condition and/or to evaluate & treat vital organ system(s) failure or risk of failure. - Medical Decision Making 10/02/18 00:52 I, Dr. Melony Tan, DO, attest that this document has been prepared under my direction and personally reviewed by me in its entirety. I further attest, that it accurately reflects all work, treatment, procedures and medical decision -making performed by me. 10/02/18 02:06 a/p: 82yo female dx with uti yesterday and started on bactrim returns today for eval of fever and sepsis -pt agitated, which the daughter states is normal for when she has a uti -tachy, febrile, hot to touch -diminished BS b/l -suprapubic ttp -will send labs, ekg, cultures, cxr, ua, ucx -will start azactam abx, no prior cultures to compare -will start ivf hydration and tylenol for fever -will need admission 10/02/18 02:07 pt is from [facility] 10/02/18 02:32 pt with persistent UTI sepsis will need admission 10/02/18 02:32 conversation with the daughter at the bedside - states patient is a DNR/I <Melony Tan - Last Filed: 10/02/18 02:33>
[2018-10-02] MEDS ORDERED: SODIUM CHLORIDE 0.9% 1000 ML INFUS.BAG IV ONE ×3 (00:53→02:49)
[2018-10-02] MEDS ORDERED: ACETAMINOPHEN 1000 MG/100 ML VIAL (NON FORMULARY) IVPB ONE ×3 (00:53→15:41)
[2018-10-02] MEDS ORDERED: AZTREONAM 1 GM in DEXTROSE 5%-WATER - 50 ML IVPB ONE (01:15)
[2018-10-02 01:27] LABS: VENOUS PH 7.45 (7.32-7.42)
[2018-10-02 01:28] LABS: VENOUS PC02 38.3 mmHg (38-52)
[2018-10-02 01:44] LABS: BASO % 0.5 % (0-2.0); HEMOGLOBIN 9.7 GM/dL (10.7-15.3); LYMPH % 5.2 % (8-40); MCH 29.9 pg (25.7-33.7); MCHC 33.5 g/dl (32.0-36.0); MEAN CELL VOLUME 89.3 fl (80-96); MEAN PLT VOLUME 9.4 fl (7.5-11.1); NEUT % 90.3 % (42.8-82.8); PLATELET COUNT 373 K/MM3 (134-434); RBC 3.25 M/mm3 (3.60-5.2); RDW 15.2 % (11.6-15.6); WHITE BLOOD COUNT 12.3 K/mm3 (4.0-10.0)
[2018-10-02 01:54] LABS: INR 1.08 (0.83-1.09); PROTHROMBIN TIME (PATIENT) 12.7 SEC (9.7-13.0)
[2018-10-02] MEDS ORDERED: ACETAMINOPHEN INJECTION 100 ML IVPB ONE (01:54)
[2018-10-02 01:57] LABS: URINE APPEARANCE SLCLOUDY; URINE BILIRUBIN NEGATIVE (<2.0 mg/dL); URINE COLOR YELLOW; URINE GLUCOSE (UA) NEGATIVE (NEGATIVE); URINE KETONE NEGATIVE (NEGATIVE); URINE LEUK ESTERASE 3+ (NEGATIVE); URINE NITRITE NEGATIVE (NEGATIVE); URINE PROTEIN NEGATIVE (NEGATIVE); URINE UROBILINOGEN NEGATIVE mg/dL (0.2-1.0)
[2018-10-02 02:06] LABS: ALBUMIN 2.8 g/dl (3.4-5.0); ALK PHOS 108 U/L (45-117); ANION GAP 7 MMOL/L (8-16); BILIRUBIN,TOTAL 0.4 mg/dL (0.2-1); BLOOD UREA NITROGEN 27 mg/dL (7-18); CALCIUM 8.6 mg/dL (8.5-10.1); CHLORIDE 109 mmol/L (98-107); CO2 28 mmol/L (21-32); GLUCOSE,RANDOM 126 mg/dL (74-106); MAGNESIUM 2.2 mg/dL (1.8-2.4); POTASSIUM 4.4 mmol/L (3.5-5.1); SGOT/AST 24 U/L (15-37); SGPT/ALT 18 U/L (13-61); SODIUM 143 mmol/L (136-145); TOT PROT 6.1 g/dl (6.4-8.2)
[2018-10-02 02:08] LABS: EPI CELLS MODERATE /HPF (FEW); URINE BACTERIA RARE /hpf (NONE SEEN); URINE MUCUS RARE
[2018-10-02] MEDS ORDERED: SODIUM CHLORIDE 0.9% 500 ML INFUS.BAG IV ONE (02:55)
--- NOTE | 2018-10-02 03:04 | HP ---
CHIEF COMPLAINT: urosepsis PCP: HISTORY OF PRESENT ILLNESS: Patient is an 82 y/o F from [facility] w/ PMHx dementia, HLD, presented yesterday to [facility] ED s/p fall, CTs were nl, found at that time to have UTI and was discharged on bactrim. Progressively worsened today with desaturation to 70s to 80s, worsening lethargy, confusion, agitation. Sepsis protocol initiated in ED, Pt received fluid boluses and dose of Aztreonam. Patient was in respiratory distress and appeared unable to protect airway, additionally had labile tachycardia 100-129, MAP fell to <65. Family elected to make patient DNR/ DNI and further declined potential central line placement. On further discussion of patient's prognosis and the adverse effects of aggressive intervention, family elected to pursue comfort care measures. ER course was notable for: (1) (2) (3) Recent Travel: PAST MEDICAL HISTORY: As per HPI PAST SURGICAL HISTORY: Social History: Smoking: Alcohol: Drugs: Family History: Allergies levofloxacin Allergy (Verified 10/02/18 00:21) piperacillin Allergy (Verified 10/02/18 00:21) tazobactam Allergy (Verified 10/02/18 00:21) tetracycline Allergy (Verified 10/02/18 00:21) HOME MEDICATIONS: Home Medications Medication Instructions Recorded Acetaminophen [Tylenol] 325 mg PO Q4H PRN 08/12/18 Atorvastatin Calcium [Lipitor] 20 mg PO DAILY 08/12/18 Cholecalciferol (Vitamin D3) 1,000 unit PO DAILY 08/12/18 [Vitamin D3 -] Cyanocobalamin [Vitamin B12 -] 1,000 mcg PO DAILY 08/12/18 Lactobacillus Acidophilus [Bacid -] 1 each PO BID 08/12/18 Memantine HCl [Namenda -] 20 mg PO DAILY 08/12/18 Quetiapine Fumarate [Seroquel -] 25 mg PO HS 08/12/18 Sertraline HCl [Zoloft -] 50 mg PO DAILY 08/12/18 clonazePAM [Klonopin -] 0.5 mg PO DAILY 08/12/18 Docusate Sodium [Colace -] 100 mg PO TID capsule 08/17/18 Enoxaparin [Lovenox -] 40 mg SQ DAILY 30 Days #30 08/17/18 disp.syrin Ferrous Sulfate [Feosol] 325 mg PO DAILY ud 08/17/18 Polyethylene Glycol 3350 [Miralax 17 gm PO DAILY bottle 08/17/18 119 gm Btl -] Sennosides [Senna -] 2 tab PO HS tablet 08/17/18 Sulfamethoxazole/Trimethoprim 1 tab PO BID #14 tablet 10/01/18 [Bactrim Ds -] REVIEW OF SYSTEMS As per HPI PHYSICAL EXAMINATION Vital Signs - 24 hr 10/01/18 10/02/18 23:20 01:57 Temperature 100.8 F H 100.5 F H Pulse Rate 129 H Respiratory 24 H Rate Blood Pressure 107/63 O2 Sat by Pulse 98 Oximetry (%) GENERAL: obtunded HEAD: NC/AT LUNGS: labored breathing, accessory muscles engaged HEART: tachycardic S1 S2 ABDOMEN: soft, NT, ND NEUROLOGICAL: could not assess Laboratory Results - last 24 hr 10/02/18 10/02/18 10/02/18 01:10 01:10 01:15 WBC RBC Hgb Hct MCV MCH MCHC RDW Plt Count MPV Absolute Neuts (auto) Neutrophils % Lymphocytes % Monocytes % Eosinophils % Basophils % Nucleated RBC % PT with INR 12.70 INR 1.08 PTT (Actin FS) 36.0 VBG pH 7.45 H POC VBG pCO2 38.3 POC VBG pO2 116.0 H Mixed VBG HCO3 26.2 H Sodium Potassium Chloride Carbon Dioxide Anion Gap BUN Creatinine Creat Clearance w eGFR Random Glucose Lactic Acid 1.3 Calcium Magnesium Total Bilirubin AST ALT Alkaline Phosphatase Creatine Kinase Troponin I Total Protein Albumin Urine Color Urine Appearance Urine pH Ur Specific [place] Urine Protein Urine Glucose (UA) Urine Ketones Urine Blood Urine Nitrite Urine Bilirubin Urine Urobilinogen Ur Leukocyte Esterase Urine WBC (Auto) Urine RBC (Auto) Ur Epithelial Cells Urine Bacteria Urine Mucus 10/02/18 10/02/18 10/02/18 01:15 01:15 01:50 WBC 12.3 H RBC 3.25 L Hgb 9.7 L Hct 29.0 L MCV 89.3 MCH 29.9 MCHC 33.5 RDW 15.2 D Plt Count 373 D MPV 9.4 D Absolute Neuts (auto) 11.1 H Neutrophils % 90.3 H Lymphocytes % 5.2 L D Monocytes % 4.0 Eosinophils % 0.0 D Basophils % 0.5 Nucleated RBC % 0 PT with INR INR PTT (Actin FS) VBG pH POC VBG pCO2 POC VBG pO2 Mixed VBG HCO3 Sodium 143 Potassium 4.4 Chloride 109 H Carbon Dioxide 28 Anion Gap 7 L BUN 27 H Creatinine 1.0 Creat Clearance w eGFR 53.21 Random Glucose 126 H Lactic Acid Calcium 8.6 Magnesium 2.2 Total Bilirubin 0.4 AST 24 ALT 18 Alkaline Phosphatase 108 Creatine Kinase 252 H Troponin I 0.02 Total Protein 6.1 L Albumin 2.8 L Urine Color Yellow Urine Appearance Slcloudy Urine pH 5.0 Ur Specific [place] 1.016 Urine Protein Negative Urine Glucose (UA) Negative Urine Ketones Negative Urine Blood Negative Urine Nitrite Negative Urine Bilirubin Negative Urine Urobilinogen Negative Ur Leukocyte Esterase 3+ H Urine WBC (Auto) 55 Urine RBC (Auto) 1 Ur Epithelial Cells Moderate Urine Bacteria Rare Urine Mucus Rare ASSESSMENT/PLAN: 82 y/o F from [facility] w/ PMHx dementia, HLD, presents in urosepsis and impending septic shock. Family declines further aggressive intervention, wishes to pursue comfort care, DNR/DNI code status signed in ED by HCP (daughter). #comfort care -current treatment of non-rebreather and completion of active fluid boluses will be continued to provide time for remaining family members to arrive -when full family is present, d/c all active therapy, initiate morphine gtt and scopolamine patch #code -DNR/DNI #dispo -admit to med/surg Visit type - Emergency Visit Emergency Visit: Yes Care time: The patient presented to the Emergency Department on the above date and was hospitalized for further evaluation of their emergent condition. - New Patient This patient is new to me today: Yes Date on this admission: 10/02/18 - Critical Care Critical Care patient: No
[2018-10-02] MEDS ORDERED: LORazepam 2 MG/ML SDV VIAL IVPUSH PRN (03:29)
[2018-10-02] MEDS: MORPHINE SULFATE 2 MG/ML VIAL IVPUSH SCH ×2 (03:45→15:30)
[2018-10-02] MEDS ORDERED: MORPHINE SULFATE 2 MG/ML VIAL ONE (04:10)
[2018-10-02] MEDS: SCOPOLAMINE HYDROBROMIDE 1 PATCH PATCH.TD72 TD SCH (04:30)
--- NOTE | 2018-10-02 06:19 | PN ---
Teaching Attending Note Name of Resident: Jerrod Palacios ATTENDING PHYSICIAN STATEMENT I saw and evaluated the patient. I reviewed the resident's note and discussed the case with the resident. I agree with the resident's findings and plan as documented. SUBJECTIVE: Seen and examined; this is a 82 y/o CF with a PMH as documented who presents with hypotension, tachycardia, and an apparent urinary source. She is demented at baseline and has been worsening with this thus leading her to be DNR/I by her two daughters. She is obtunded at the moment and cannot provide history, nor can she protect her airway and is on a nonrebreather. Confirmed with the daughter that they do not wish for aggressive interventions including intubation , central line, etc. Spoke to the family regarding the prognosis, ICU care, etc. Due to her advanced dementia they do not wish for this and after speaking with the family, stating that we could still treat conservatively vs. comfort care depending on their wishes. As the overall trajectory of her dementia would not change and her quality of life is poor, she will be placed on comfort measures only while inpatient and allow to naturally. Explained at length to the family that should they change their mind we would be happy to provide more aggressive care, but their current goal is to allow their chronically ill mother with a poor QOL to with dignity. No more IV fluids/abx/O2. Comfort measures only. Couldnt obtain ROS PMH, PSH reviewed Couldnt confirm family or social history due to her being obtunded OBJECTIVE: VS, labs, imaging reviewed In distress, resting in bed; calmer after the NRB, etc. removed Somewhat uncomfortable, writhing NT ND +BS Tachycardic to 110s on monitor with BP 80/30 on cuff Pursed lip breathing Difficult lung exam but perhaps scattered crackles ASSESSMENT AND PLAN: 82 y/o female with profound dementia presenting with septic shock likely 2/2 UTI who is DNR/I. She cannot protect her airway, family doesn't want CVC, and are agreeable to comfort care only which was explained at great length by myself and team members. Comfort Measures only -Morphine Drip 2mg/hr -Scopalamine patch -No labs/O2/IVF/abx. Allow natural -PRN ativan for anxiety -Asked nursing for manager of corporate communications per family wishes -Anticipating in hours to days DNR/I Comfort Measures only. Daughters are proxy; they decided together. Number will be placed in chart.
[2018-10-02] MEDS: MORPHINE 100 MG in SODIUM CHLORIDE 98 ML IVPB SCH (07:01)
--- NOTE | 2018-10-02 11:44 | PN ---
Physical Exam: SUBJECTIVE: Patient seen and examined at bedside. Daughters at bedside. OBJECTIVE: Vital Signs Period Temp Pulse Resp BP Sys/Ramirez Pulse Ox Last 24 Hr 100.5 F-100.8 F 87-129 20-24 87-107/54-63 96-100 HEAD: Normal with no signs of trauma. LUNGS: CTA B/L HEART: RRR No MRG S1S2 ABDOMEN: No facial grimacing to palpation. Laboratory Results - last 24 hr 10/02/18 10/02/18 10/02/18 01:10 01:10 01:15 WBC RBC Hgb Hct MCV MCH MCHC RDW Plt Count MPV Absolute Neuts (auto) Neutrophils % Lymphocytes % Monocytes % Eosinophils % Basophils % Nucleated RBC % PT with INR 12.70 INR 1.08 PTT (Actin FS) 36.0 VBG pH 7.45 H POC VBG pCO2 38.3 POC VBG pO2 116.0 H Mixed VBG HCO3 26.2 H Sodium Potassium Chloride Carbon Dioxide Anion Gap BUN Creatinine Creat Clearance w eGFR Random Glucose Lactic Acid 1.3 Calcium Magnesium Total Bilirubin AST ALT Alkaline Phosphatase Creatine Kinase Creatine Kinase Index CK-MB (CK-2) Troponin I Total Protein Albumin Urine Color Urine Appearance Urine pH Ur Specific [place] Urine Protein Urine Glucose (UA) Urine Ketones Urine Blood Urine Nitrite Urine Bilirubin Urine Urobilinogen Ur Leukocyte Esterase Urine WBC (Auto) Urine RBC (Auto) Ur Epithelial Cells Urine Bacteria Urine Mucus 10/02/18 10/02/18 10/02/18 01:15 01:15 01:50 WBC 12.3 H RBC 3.25 L Hgb 9.7 L Hct 29.0 L MCV 89.3 MCH 29.9 MCHC 33.5 RDW 15.2 D Plt Count 373 D MPV 9.4 D Absolute Neuts (auto) 11.1 H Neutrophils % 90.3 H Lymphocytes % 5.2 L D Monocytes % 4.0 Eosinophils % 0.0 D Basophils % 0.5 Nucleated RBC % 0 PT with INR INR PTT (Actin FS) VBG pH POC VBG pCO2 POC VBG pO2 Mixed VBG HCO3 Sodium 143 Potassium 4.4 Chloride 109 H Carbon Dioxide 28 Anion Gap 7 L BUN 27 H Creatinine 1.0 Creat Clearance w eGFR 53.21 Random Glucose 126 H Lactic Acid Calcium 8.6 Magnesium 2.2 Total Bilirubin 0.4 AST 24 ALT 18 Alkaline Phosphatase 108 Creatine Kinase 252 H Creatine Kinase Index 0.3 CK-MB (CK-2) < 1.0 Troponin I 0.02 Total Protein 6.1 L Albumin 2.8 L Urine Color Yellow Urine Appearance Slcloudy Urine pH 5.0 Ur Specific [place] 1.016 Urine Protein Negative Urine Glucose (UA) Negative Urine Ketones Negative Urine Blood Negative Urine Nitrite Negative Urine Bilirubin Negative Urine Urobilinogen Negative Ur Leukocyte Esterase 3+ H Urine WBC (Auto) 55 Urine RBC (Auto) 1 Ur Epithelial Cells Moderate Urine Bacteria Rare Urine Mucus Rare Active Medications Generic Name Dose Route Start Last Admin Trade Name Freq PRN Reason Stop Dose Admin Morphine Sulfate 100 mg/ 100 mls @ 1 mls/hr 10/02/18 06:15 10/02/18 07:01 Sodium Chloride IVPB 1 mg/hr TITR CLEMENTINA 1 mls/hr Administration Protocol 1 MG/HR Lorazepam 0.5 mg 10/02/18 03:29 Ativan Injection - IVPUSH Q2H PRN AGITATION Scopolamine HBr 1 patch 10/02/18 03:30 10/02/18 04:30 Transderm-Scop - TD 1 patch Q72H CLEMENTINA Administration ASSESSMENT/PLAN: 82 y/o F from [facility] w/ PMHx dementia, HLD, presents in urosepsis and impending septic shock. Family declines further aggressive intervention, wishes to pursue comfort care, DNR/DNI code status signed in ED by HCP (daughter). #comfort care -treatment of non-rebreather -when full family is present, d/c all active therapy, continue morphine gtt and scopolamine patch. Ativan 0.5 mg ivpush Q2H prn Agitation. #code -DNR/DNI #dispo -med/surg Visit type - Emergency Visit Emergency Visit: Yes ED Registration Date: 10/02/18 Care time: The patient presented to the Emergency Department on the above date and was hospitalized for further evaluation of their emergent condition. - New Patient This patient is new to me today: Yes Date on this admission: 10/02/18 - Critical Care Critical Care patient: No - Discharge Referral Referred to [facility] Med P.C.: No
--- NOTE | 2018-10-02 11:58 | EKG ---
Test Reason : Blood Pressure : / mmHG Vent. Rate : 099 BPM Atrial Rate : 099 BPM P-R Int : 150 ms QRS Dur : 084 ms QT Int : 386 ms P-R-T Axes : 057 -25 -19 degrees QTc Int : 495 ms SINUS RHYTHM WITH PREMATURE ATRIAL COMPLEXES SEPTAL INFARCT (CITED ON OR BEFORE 14-AUG-2018) ABNORMAL ECG WHEN COMPARED WITH ECG OF 14-AUG-2018 19:44, PREMATURE ATRIAL COMPLEXES ARE NOW PRESENT NONSPECIFIC T WAVE ABNORMALITY NOW EVIDENT IN INFERIOR LEADS Confirmed by ALETHEA GIBSON MD ([id number]) on 10/02/2018 11:58:26 AM Referred By: Confirmed By:ALETHEA GIBSON MD
--- NOTE | 2018-10-02 18:04 | PN ---
Teaching Attending Note Name of Resident: Pete Rojas ATTENDING PHYSICIAN STATEMENT I saw and evaluated the patient. I reviewed the resident's note and discussed the case with the resident. I agree with the resident's findings and plan as documented. SUBJECTIVE:tachypnic OBJECTIVE: Last Vital Signs Temp Pulse Resp BP Pulse Ox 100.2 F H 82 20 150/51 L 92 L 10/02/18 15:09 10/02/18 15:09 10/02/18 15:09 10/02/18 15:09 10/02/18 15:11 General tachypnic, does not respond to verbal stimuli CV S1 S2 RRR no murmur/rub/gallop Lungs CTA B/L no wheezing/rales/rhonchi ASSESSMENT AND PLAN: 82yo F with PMH dementia presented to the ER with septic shock due to UTI. Family discussion last night and patient was made DNR/DNI and comfort measures 1. Comfort measure- pt is currently on morphine ggt and ativan for comfort. will place on non-rebreather for comfort. titrate medications per protocol. no more lab draws 2. spoke wtih daughter present at bedside. all questions answered.
[2018-10-03] MEDS: ACETAMINOPHEN 1000 MG/100 ML VIAL (NON FORMULARY) IVPB PRN (11:36)
[2018-10-03] MEDS: MORPHINE 100 MG in SODIUM CHLORIDE 98 ML IVPB SCH ×2 (13:31→19:31)
--- NOTE | 2018-10-03 14:55 | PN ---
Teaching Attending Note Name of Resident: Pete Rojas ATTENDING PHYSICIAN STATEMENT I saw and evaluated the patient. I reviewed the resident's note and discussed the case with the resident. I agree with the resident's findings and plan as documented. SUBJECTIVE:resting comfortable OBJECTIVE: Last Vital Signs Temp Pulse Resp BP Pulse Ox 101.0 F H 96 H 24 H 99/57 L 100 10/03/18 08:00 10/03/18 08:00 10/03/18 08:00 10/03/18 08:00 10/03/18 09:00 General NAD, does not respond to verbal or tactile stimuli CV S1 S2 RRR no murmur/rub/gallop Lungs CTA B/L no wheezing/rales/rhonchi ASSESSMENT AND PLAN: 82yo F with PMH dementia presented to the ER with septic shock due to UTI. Family discussion last night and patient was made DNR/DNI and comfort measures 1. Comfort measure- pt is currently on morphine ggt and ativan for comfort. non re-breather for comfort. titrate medications per protocol. no more lab draws 2. spoke with daughters present at bedside. concern that patient has not yet passed. informed me that she was being evaluated prior to this hospitalization for hospice. Expressed mother did not want aggressive measures however she recovered from UTI over the [place] and perhaps she can recover from this as well. however does express how her mother was stating she no longer had desire to live and expressed she wanted to go to [facility]. has more questions regarding comfort and next steps. Asked RN to elise Moore to speak with family in detail.
--- NOTE | 2018-10-03 20:07 | PN ---
Physical Exam: SUBJECTIVE: Patient seen and examined at bedside. On nonrebreather and morphine gtt. Comfort care measures in place. OBJECTIVE: Vital Signs Period Temp Pulse Resp BP Sys/Ramirez Pulse Ox Last 24 Hr 99 F-101.0 F 91-110 20-24 99-150/57-88 92-100 GENERAL: nonresponsive, Nonrebreather, tachypneic LUNGS: CTA b/L HEART: RRR No MRG S1S2 ABDOMEN: Soft Active Medications Generic Name Dose Route Start Last Admin Trade Name Freq PRN Reason Stop Dose Admin Acetaminophen 1,000 mg 10/03/18 11:05 10/03/18 11:36 Ofirmev Injection - IVPB 1,000 mg Q6H PRN Administration FEVER Morphine Sulfate 100 mg/ 100 mls @ 1 mls/hr 10/02/18 06:15 10/03/18 19:31 Sodium Chloride IVPB 1 mg/hr TITR CLEMENTINA 1 mls/hr Administration Protocol 1 MG/HR Lorazepam 0.5 mg 10/02/18 03:29 10/03/18 05:55 Ativan Injection - IVPUSH 0.5 mg Q2H PRN Administration AGITATION Scopolamine HBr 1 patch 10/02/18 03:30 10/02/18 04:30 Transderm-Scop - TD 1 patch Q72H CLEMENTINA Administration ASSESSMENT/PLAN: 82 y/o F from [facility] w/ PMHx dementia, HLD, presents in urosepsis and impending septic shock. Family declines further aggressive intervention, wishes to pursue comfort care, DNR/DNI code status signed in ED by HCP (daughter). #Comfort care -treatment of non-rebreather Morphine gtt @ 1 ml/hr IVPB Lorazapam 0.5 mg ivpush q2hr prn agitation -Ofiramev prn for fever #code -DNR/DNI #dispo -med/surg Visit type - Emergency Visit Emergency Visit: Yes ED Registration Date: 10/02/18 Care time: The patient presented to the Emergency Department on the above date and was hospitalized for further evaluation of their emergent condition. - New Patient This patient is new to me today: No - Critical Care Critical Care patient: No - Discharge Referral Referred to [facility] Med [facility].: No
--- NOTE | 2018-10-04 11:35 | PN ---
Progress Note (short form) - Note Progress Note: tachypnic with sternal retractions Current Medications Generic Name Dose Route Start Last Admin Trade Name Freq PRN Reason Stop Dose Admin Acetaminophen 1,000 mg 10/03/18 11:05 10/03/18 11:36 Ofirmev Injection - IVPB 1,000 mg Q6H PRN Administration FEVER Morphine Sulfate 100 mg/ 100 mls @ 1 mls/hr 10/02/18 06:15 10/03/18 19:31 Sodium Chloride IVPB 1 mg/hr TITR CLEMENTINA 1 mls/hr Administration Protocol 1 MG/HR Lorazepam 0.5 mg 10/02/18 03:29 10/03/18 05:55 Ativan Injection - IVPUSH 0.5 mg Q2H PRN Administration AGITATION Scopolamine HBr 1 patch 10/02/18 03:30 10/02/18 04:30 Transderm-Scop - TD 1 patch Q72H CLEMENTINA Administration Last Vital Signs Temp Pulse Resp BP Pulse Ox 98.4 F 90 22 H 104/42 L 100 10/04/18 06:00 10/04/18 06:00 10/04/18 06:00 10/04/18 06:00 10/03/18 21:00 General tachypnic with sternal retractions does not respond to verbal or tactile stimuli does not withdraw to pain CV S1 S2 RRR no murmur/rub/gallop Lungs CTA B/L no wheezing/rales/rhonchi ASSESSMENT AND PLAN: 82yo F with PMH dementia presented to the ER with septic shock due to UTI. Family discussion last night and patient was made DNR/DNI and comfort measures 1. Comfort measure- requested RN to go up on morphine ggt for comfort. titrate as needed for comfort. follow comfort measures. no more lab draws Visit type - Emergency Visit Emergency Visit: Yes ED Registration Date: 10/02/18 Care time: The patient presented to the Emergency Department on the above date and was hospitalized for further evaluation of their emergent condition. - New Patient This patient is new to me today: No - Critical Care Critical Care patient: No - Discharge Referral Referred to [facility] Med [facility].C.: No
[2018-10-04] MEDS: ACETAMINOPHEN 1000 MG/100 ML VIAL (NON FORMULARY) IVPB PRN (14:12)
[2018-10-05] MEDS: SCOPOLAMINE HYDROBROMIDE 1 PATCH PATCH.TD72 TD SCH (04:04)
--- NOTE | 2018-10-05 11:11 | PN ---
Teaching Attending Note Name of Resident: Pete Teran ATTENDING PHYSICIAN STATEMENT I saw and evaluated the patient. I reviewed the resident's note and discussed the case with the resident. I agree with the resident's findings and plan as documented. SUBJECTIVE: OBJECTIVE: Last Vital Signs Temp Pulse Resp BP Pulse Ox 99.2 F 98 H 14 97/55 L 98 10/05/18 09:00 10/05/18 09:00 10/05/18 09:00 10/05/18 09:00 10/04/18 21:00 General NAD does not respond to verbal or tactile stimuli does not withdraw to pain CV S1 S2 RRR no murmur/rub/gallop Lungs CTA B/L no wheezing/rales/rhonchi ASSESSMENT AND PLAN: 82yo F with PMH dementia presented to the ER with septic shock due to UTI. Family discussion last night and patient was made DNR/DNI and comfort measures 1. Comfort measure-comfortable. on morphine ggt at 2.5cc/H. ativan prn. continue titration per protocol. comfort measures.
--- NOTE | 2018-10-05 12:26 | PN ---
Physical Exam: SUBJECTIVE: Patient seen and examined at bedside. No acute events. Pt unresponsive. On comfort measures OBJECTIVE: Vital Signs Period Temp Pulse Resp BP Sys/Ramirez Pulse Ox Last 24 Hr 98.2 F-101.9 F 90-118 14-24 79-129/34-86 98 Gen: unresponsive. in no apparent distress HEENT: NCAT Neck: supple Cardio: rrr, norm s1s2, no mrg Pulm: abdominal breathing, limited lung exam, no rales/ronchi appreciated Abd: soft, no guarding Active Medications Generic Name Dose Route Start Last Admin Trade Name Freq PRN Reason Stop Dose Admin Acetaminophen 1,000 mg 10/03/18 11:05 10/04/18 14:12 Ofirmev Injection - IVPB 1,000 mg Q6H PRN Administration FEVER Morphine Sulfate 100 mg/ 100 mls @ 1 mls/hr 10/02/18 06:15 10/05/18 10:00 Sodium Chloride IVPB 2.5 mg/hr TITR CLEMENTINA 2.5 mls/hr Titration Protocol 1 MG/HR Lorazepam 0.5 mg 10/02/18 03:29 10/03/18 05:55 Ativan Injection - IVPUSH 0.5 mg Q2H PRN Administration AGITATION Scopolamine HBr 1 patch 10/02/18 03:30 10/05/18 04:04 Transderm-Scop - TD 1 patch Q72H CLEMENTINA Administration ASSESSMENT/PLAN: Pt is an 82 y/o F with PMH advanced dementia who presented to ED with septic shock 2/2 uti. Pt made comfort care by family. c/w morphine drip, scopolamine, ativan prn Pete Teran MD PGY-2 IM Visit type - Emergency Visit Emergency Visit: No - New Patient This patient is new to me today: No - Critical Care Critical Care patient: No
[2018-10-06] MEDS: MORPHINE 100 MG in SODIUM CHLORIDE 98 ML IVPB SCH (00:26)
--- NOTE | 2018-10-06 13:06 | PN ---
Teaching Attending Note Name of Resident: Pete Rojas ATTENDING PHYSICIAN STATEMENT I saw and evaluated the patient. I reviewed the resident's note and discussed the case with the resident. I agree with the resident's findings and plan as documented. SUBJECTIVE:resting comfortable OBJECTIVE: Last Vital Signs Temp Pulse Resp BP Pulse Ox 98.7 F 108 H 20 117/54 L 98 10/06/18 06:26 18 06:26 10/06/18 06:26 10/06/18 06:26 10/05/18 21:00 General NAD does not respond to verbal or tactile stimuli does not withdraw to pain HEENT pupils sluggish CV S1 S2 RRR no murmur/rub/gallop Lungs CTA B/L no wheezing/rales/rhonchi ASSESSMENT AND PLAN: 82yo F with PMH dementia presented to the ER with septic shock due to UTI. Family discussion last night and patient was made DNR/DNI and comfort measures 1. Comfort measure-comfortable. on morphine ggt at 2.5cc/H. ativan prn. continue titration per protocol. comfort measures. 2. spoke with daughter present at bedside. all questions answered. verbalized understanding and agreement
[2018-10-06] MEDS ORDERED: LORazepam 2 MG/ML SDV VIAL IVPUSH ONE (13:09)
[2018-10-06] MEDS ORDERED: LORazepam 2 MG/ML SDV VIAL IVPUSH PRN (13:09)
[2018-10-06] MEDS ORDERED: MORPHINE 100 MG in SODIUM CHLORIDE 98 ML IVPB SCH (13:11)
--- NOTE | 2018-10-06 14:55 | PN ---
Physical Exam: SUBJECTIVE: Patient seen and examined at bedside. Comfort care measures remain in place. Daughter at bedside. OBJECTIVE: Vital Signs Period Temp Pulse Resp BP Sys/Ramirez Pulse Ox Last 24 Hr 98.1 F-99 F 95-108 16-21 102-117/41-54 98-98 GENERAL: nonresponsive, Nonrebreather, tachypneic, accessory muscle use, mouth open LUNGS: Right upper lobe crackles HEART: RRR No MRG S1S2 ABDOMEN: Soft Active Medications Generic Name Dose Route Start Last Admin Trade Name Freq PRN Reason Stop Dose Admin Acetaminophen 1,000 mg 10/03/18 11:05 10/04/18 14:12 Ofirmev Injection - IVPB 1,000 mg Q6H PRN Administration FEVER Morphine Sulfate 100 mg/ 100 mls @ 1 mls/hr 10/06/18 13:11 10/06/18 14:30 Sodium Chloride IVPB 1 mg/hr TITR CLEMENTINA 1 mls/hr Administration Protocol 1 MG/HR Lorazepam 1 mg 10/06/18 13:09 Ativan Injection - IVPUSH Q2H PRN AGITATION Scopolamine HBr 1 patch 10/02/18 03:30 10/05/18 04:04 Transderm-Scop - TD 1 patch Q72H CLEMENTINA Administration ASSESSMENT/PLAN: 82 y/o F from [facility] w/ PMHx dementia, HLD, presents in urosepsis and impending septic shock. Family declines further aggressive intervention, wishes to pursue comfort care, DNR/DNI code status signed in ED by HCP (daughter). #Comfort care - non-rebreather Morphine gtt titrated to 2.5cc/H. Lorazapam 1 mg ivpush q2hr prn agitation -Ofiramev prn for fever #code -DNR/DNI #dispo -med/surg Visit type - Emergency Visit Emergency Visit: Yes ED Registration Date: 10/02/18 Care time: The patient presented to the Emergency Department on the above date and was hospitalized for further evaluation of their emergent condition. - New Patient This patient is new to me today: No - Critical Care Critical Care patient: No - Discharge Referral Referred to [facility] Med P.C.: No
[2018-10-06] MEDS: ACETAMINOPHEN 1000 MG/100 ML VIAL (NON FORMULARY) IVPB PRN (21:47)
[2018-10-07 14:37] VITALS: BP 43/24; PULSE 88; TEMP 99.1
--- NOTE | 2018-10-07 16:16 | PN ---
Teaching Attending Note Name of Resident: Pete Rojas ATTENDING PHYSICIAN STATEMENT I saw and evaluated the patient. I reviewed the resident's note and discussed the case with the resident. I agree with the resident's findings and plan as documented with exceptions below. SUBJECTIVE: Patient seen and examined. unresponsive, daughter at bedside. OBJECTIVE: Vital Signs Period Temp Pulse Resp BP Sys/Ramirez Pulse Ox Last 24 Hr 98.8 F-102.1 F 88-129 22-26 43-76/23-35 98 Intake & Output 10/04/18 10/05/18 10/06/18 10/07/18 23:59 23:59 23:59 23:59 Intake Total 0 30 0 42 Output Total 500 500 300 400 Balance -500 -470 -300 -358 Weight 150 lb General: unresponsive on non rebreather in bed tachypneic, occasional agonal breaths Abdomen:soft Extremities: cyanotic hue left foot right hand Neck soft, supple Home Medications Medication Instructions Recorded Acetaminophen [Tylenol] 325 mg PO Q4H PRN 08/12/18 Atorvastatin Calcium [Lipitor] 20 mg PO DAILY 08/12/18 Cholecalciferol (Vitamin D3) 1,000 unit PO DAILY 08/12/18 [Vitamin D3 -] Cyanocobalamin [Vitamin B12 -] 1,000 mcg PO DAILY 08/12/18 Lactobacillus Acidophilus [Bacid -] 1 each PO BID 08/12/18 Memantine HCl [Namenda -] 20 mg PO DAILY 08/12/18 Quetiapine Fumarate [Seroquel -] 25 mg PO HS 08/12/18 Sertraline HCl [Zoloft -] 50 mg PO DAILY 08/12/18 clonazePAM [Klonopin -] 0.5 mg PO DAILY 08/12/18 Docusate Sodium [Colace -] 100 mg PO TID capsule 08/17/18 Enoxaparin [Lovenox -] 40 mg SQ DAILY 30 Days #30 08/17/18 disp.syrin Ferrous Sulfate [Feosol] 325 mg PO DAILY ud 08/17/18 Polyethylene Glycol 3350 [Miralax 17 gm PO DAILY bottle 08/17/18 119 gm Btl -] Sennosides [Senna -] 2 tab PO HS tablet 08/17/18 Sulfamethoxazole/Trimethoprim 1 tab PO BID #14 tablet 10/01/18 [Bactrim Ds -] Active Medications Acetaminophen (Ofirmev Injection -) 1,000 mg IVPB Q6H PRN PRN Reason: FEVER Last Admin: 10/06/18 21:47 Dose: 1,000 mg Morphine Sulfate 100 mg/ (Sodium Chloride) 100 mls @ 1 mls/hr IVPB TITR CLEMENTINA; Protocol Last Admin: 10/06/18 14:30 Dose: 1 mg/hr, 1 mls/hr Lorazepam (Ativan Injection -) 1 mg IVPUSH Q2H PRN PRN Reason: AGITATION Scopolamine HBr (Transderm-Scop -) 1 patch TD Q72H CLEMENTINA Last Admin: 10/05/18 04:04 Dose: 1 patch ASSESSMENT AND PLAN: 82yo F with PMH dementia presented to the ER with septic shock due to UTI. Family discussion last night and patient was made DNR/DNI and comfort measures -Septic shock due to UTI -Dementia -HLD Plan: Morphine drip,titrate to comfort. Ativan prn, scopolamine patch. Palliave care consult. Poor prognosis. Social work input for inpatient hospice if able. Discussed with nursing if patient able to get a private room Plan discussed with daughter at bedside in detail, all questions answered.
--- NOTE | 2018-10-07 16:22 | PN ---
Physical Exam: SUBJECTIVE: Patient seen and examined at bedside. Comfort care measures in place. On nonrebreather. OBJECTIVE: Vital Signs Period Temp Pulse Resp BP Sys/Ramirez Pulse Ox Last 24 Hr 98.8 F-102.1 F 88-129 22-26 43-76/23-35 98 GENERAL: Unresponsive, Agonal breathing LUNGS: Poor inspiratory effort HEART: RRR No MRG [id number] ABDOMEN: Soft Active Medications Generic Name Dose Route Start Last Admin Trade Name Freq PRN Reason Stop Dose Admin Acetaminophen 1,000 mg 10/03/18 11:05 10/06/18 21:47 Ofirmev Injection - IVPB 1,000 mg Q6H PRN Administration FEVER Morphine Sulfate 100 mg/ 100 mls @ 1 mls/hr 10/06/18 13:11 10/06/18 14:30 Sodium Chloride IVPB 1 mg/hr TITR CLEMENTINA 1 mls/hr Administration Protocol 1 MG/HR Lorazepam 1 mg 10/06/18 13:09 Ativan Injection - IVPUSH Q2H PRN AGITATION Scopolamine HBr 1 patch 10/02/18 03:30 10/05/18 04:04 Transderm-Scop - TD 1 patch Q72H CLEMENTINA Administration ASSESSMENT/PLAN: 82 [facility]/o F from [facility] w/ PMHx dementia, HLD, presents in urosepsis and impending septic shock. Family declines further aggressive intervention, wishes to pursue comfort care, DNR/DNI code status signed in ED by HCP (daughter). #Comfort care Measures - non-rebreather -Morphine gtt titrated to 3.5 cc/H. -Lorazapam 1 mg ivpush q2hr prn agitation -Ofiramev prn for fever Scopolamine patch #code -DNR/DNI #dispo -med/surg Visit type - Emergency Visit Emergency Visit: Yes ED Registration Date: 10/02/18 Care time: The patient presented to the Emergency Department on the above date and was hospitalized for further evaluation of their emergent condition. - New Patient This patient is new to me today: No - Critical Care Critical Care patient: No - Discharge Referral Referred to [facility] No
--- NOTE | 2018-10-07 23:24 | HOSP ---
Subjective - Review of Symptoms Subjective: Was called to evaluate patient at 7:25 PM as nurse had observed her respirations cease. Upon arrival at bed side, no spontaneous respirations were observed. There was no response to vigorous tactile and auditory stimuli. Plantar responses were absent. No heart or breath sounds were appreciated on 2 minutes of auscultation. No radial, brachial, femoral, or carotid pulse was present. Pupils were fixed and dilated. The patient was pronounced at 7:32 pm. Next of kin was at bedside and was informed. The attending physician's service was contacted and notified at 7:35 pm. Physical Examination Vital Signs: Vital Signs Temperature 99.1 F 10/07/18 14:35 Pulse Rate 88 10/07/18 14:35 Respiratory Rate 22 H 10/07/18 14:35 Blood Pressure 43/24 L 10/07/18 14:35 O2 Sat by Pulse Oximetry (%) 95 10/07/18 09:00 Labs: CBC, BMP 10/02/18 01:15 10/02/18 01:15
== END 2018-10-07 21:49 | disposition expired | DRG 871 ==
LOC: JER 23:20 → JERBED 10-02 02:40 → UNDOADMIN 10-02 03:20 → J6S 10-02 14:20
PROVIDERS: ADMIT Internal Medicine; ATTEND Hospitalist
DX: A41.9 Sepsis, unspecified organism (principal); R65.21 Severe sepsis with septic shock; N39.0 Urinary tract infection, site not specified; G30.9 Alzheimer's disease, unspecified; F02.80 Dementia in other diseases classified elsewhere, unspecified severity, without behavioral disturbance, psychotic disturbance, mood disturbance, and anxiety; E78.5 Hyperlipidemia, unspecified; I25.10 Atherosclerotic heart disease of native coronary artery without angina pectoris; F41.8 Other specified anxiety disorders; R00.0 Tachycardia, unspecified; R53.83 Other fatigue; I95.9 Hypotension, unspecified; Z66 Do not resuscitate
CPT/HCPCS: 36415; 70450-TC; 70486-TC; 72125-TC; 80053; 81003; 81015; 82550; 82553; 82803; 83605; 83735; 84484; 85025; 85610; 85730; 87040; 87086; 87186; 93005; 93010; 99283-25; 99284-25; J0131; J7030